=== PATIENT | male | born 1960 | race Caucasian/White ===

== ENCOUNTER → 2016-11-12 | Outpatient (CLI) | payer OTHER ==
[2016-11-12 13:54] LABS: ALT/SGPT 33 U/L (12-78); BLOOD UREA NITROGEN 23 mg/dl (7-18); BUN/CREATININE RATIO 20.5 (10-20); CALCIUM 9.9 mg/dl (8.5-10.1); CARBON DIOXIDE 31 mmol/L (21-32); CHLORIDE 102 mmol/L (98-107); CHOLESTEROL 135 mg/dl (0-200); GLUCOSE 90 mg/dl (70-99); POTASSIUM 3.9 mmol/L (3.5-5.1); SODIUM 138 mmol/L (136-145); TRIGLYCERIDES 97 mg/dl (0-150); VERY LOW DENSITY LIPOPROT CALC 19 mg/dl
[2016-11-12 14:04] LABS: CHOLESTEROL/HDL RATIO 2.7; HDL CHOLESTEROL 50 mg/dl; LDL CHOLESTEROL CALCULATED 66 mg/dl
== END | disposition home or self-care (01) ==
LOC: C.LABMFLN 06:36
PROVIDERS: ATTEND Family Medicine
DX: E78.00 Pure hypercholesterolemia, unspecified (principal); I10 Essential (primary) hypertension; J45.909 Unspecified asthma, uncomplicated; E03.9 Hypothyroidism, unspecified; Z12.5 Encounter for screening for malignant neoplasm of prostate

== ENCOUNTER 2025-02-10 09:11 | Inpatient (IN) ==
--- NOTE | 2025-02-10 09:25 | Emergency Department Note ---
Impression & Plan Dizziness, Syncope, Urinary retention, Seizure-like activity ED Provider Note NAME: TERENCE COYNE AGE: 64 SEX: M : 1960 ARRIVES VIA: Ambulance INFORMANT: Patient, ED PROVIDER(S): Shane Wilkinson MD CHIEF COMPLAINT: Seizure-like activity MEDICAL DECISION MAKING: Patient presents with above. Nonfocal neurologic exam. IV was established and blood work was obtained along with CT head. Patient was ordered 500 of IV fluids. Patient did have a post void trial performed as the patient was to go to the urologist today. Blood work shows a white count of 13. Patient denies any infectious symptoms. He has had a bit of cough. Has been dry nonproductive. Non-smoker. Chest x- ray does not show evidence of obvious pneumonia. Hemoglobin 12.6 with a normal platelet count kidney function with a creat 1.4. This is around the patient's baseline. Magnesium of 1.6 ordered 1 g for replacement. LFTs unremarkable. CT head does not show evidence of obvious ICH. Did speak the on-call neurologist recommended MRI brain EEG. If concern for seizure loaded with Keppra 1 g and 500 twice daily thereafter p.o. I did speak the on-call hospitalist service Dr. Gastelum. She was thinking that maybe the patient was suffering from a syncopal event. The patient recently started some Flomax and reported some lightheadedness prior to the episode. Orthostatics were positive. MRI kept but deferring EEG at this time. Patient comfortable plan of care and the patient was admitted to the medicine service. Discussion w/ other healthcare providers: None Prior /Outside records reviewed: None Differential diagnosis: Epilepsy, infection, hypoglycemia, electrolyte abnormalities, cardiac sources, intracerebral event, trauma, toxicologic, neurologic, syncope, as well as other pathologies. Diagnostics, as interpreted by me: ECG: Normal sinus rhythm, rate of 73, normal intervals, left axis deviation no obvious STEMI. Cardiac monitoring: An order was placed for continuous cardiac monitoring. The monitor shows a rate of 65 with sinus rhythm. Patient was placed on pulse oximetry Medical decision rules: none Imaging studies: I informally interpreted the patient's chest x-ray does not show evidence of obvious pneumonia with formal report to follow. HPI: Patient presents due to concern for seizure-like activity which occurred for several minutes on a van for transportation to a urology appointment. The patient reportedly had a heart attack back in December and fortunately has had persistent urinary retention. The patient was scheduled to see Dr. Marie today. No reported tongue biting. He was unresponsive. BSG prior to arrival was 149. Patient states that he did have some vomiting but no longer feels nauseated. He denies any chest pain or shortness of breath. He reports that he has been taking his medications. He denies any drug use or caffeine or stimulants. No increase in stress or lack of sleep. He reports that he does have a history of seizures but has not had them in "decades." Patient denies any recent prolonged car or plane travel. No travel out of state or country. States that his sleep and appetite have been good. He does live by himself and is from [facility]. He denies any head neck chest back or abdominal pain. PAST MEDICAL HISTORY: See Below PAST SURGICAL HISTORY: See Below SOCIAL HISTORY: See Below HOME MEDICATIONS: See Below ALLERGIES: See Below VITALS: See Below PHYSICAL EXAMINATION: GENERAL: NAD, non-toxic. Wearing glasses. EYE EXAM: Normal conjunctiva. PERRL, no anisocoria and EOM's grossly intact w/o pain. OROPHARYNX: Moist mucus membranes, grossly normal dentition. NECK: Trachea midline, no stridor. Supple, no nuchal rigidity, no adenopathy, non-tender. No signs of meningismus. FROM of the neck with good chin to chest and neck extension. LUNGS: Clear to auscultation. Normal chest wall mechanics. HEART: NSR, no MRG. ABDOMEN: Abdomen soft, non-tender, no masses, no rebound or guarding. SKIN: No rashes and no bruising. UPPER EXTREMITIES: Upper extremities are grossly normal. LOWER EXTREMITIES: Grossly normal, no edema. NEURO EXAM: Awake and alert, follows commands, no obvious facial asymmetry, normal speech, moves all 4 extremities. Past Med/Surg History Problem List (Updated 02/10/25 @ 16:37 by Shane Wilkinson MD) Syncope (Acute) Dizziness (Acute) Syncope Seizure-like activity (Acute) Left renal mass Recently diagnosed- reason for upcoming procedure Anticoagulation management encounter Preoperative evaluation of a medical condition to rule out surgical contraindications (TAR required) Encounter for pre-operative examination Urinary retention (Acute) Orthostatic hypotension Pre-operative cardiovascular examination, recent myocardial infarction Allergic rhinitis (Acute) Esophageal reflux disease (Acute) Sciatica (Acute) Medical History HTN (hypertension) hx of HTN; med changes made recently 2/ new dx of afib and orthostatic hypotension (post 12/2024 hospital d/c pt was on fluid restriction for hyponatremia) History of congenital heart defect pt states coarctation of aorta repair age 6; denies issues since that time; does not follow with Cardio routinely "No doppler findings of significant proximal descending aorta coarctation on limited screening images" per 12/27/24 ECHO Orthostatic hypotension Velasco catheter in place History of epilepsy pt states he was taken off of medication in and has only had 1 sz since then () NSTEMI (non-ST elevated myocardial infarction) 12/24/24- during admission for sepsis (per records - felt likely due to stress from sepsis/demand ischemia); Preop appt with [facility] 02/08/25 [facility] (acute kidney injury) History of 12/2024 (creatinine was up to 10) - has since improved History of recent hospitalization Admitted 12/24/24-01/03/25- with sepsis, urinary retention, hyponatremia, PNA, NSTEMI 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; Discovered 01/24/25- started on Eliquis Paroxysmal atrial fibrillation Developed during 12/2024 [facility] admission for sepsis - cardiology started amiodarone but pt is not currently taking as of 01/31/25 PAT phone interview Hyponatremia During 12/24/24 [facility] admission (Na 110) (felt due to hypovolemia) Has since improved; pt states fluid restriction was lifted Pneumonia 12/2024- during [facility] admission- treated- resolved on most recent CXR Chronic GERD Asthma Hypercholesterolemia Benign essential hypertension Hypothyroidism Obstructive sleep apnea does not use device Surgical History History of colonoscopy H/O aortic coarctation repair age 6; pt states no issues since that time; not following with Cardio Family History Father Diabetes Hypertension Dyslipidemia Alzheimer disease Stroke Myocardial infarction Mother Diabetes Stroke Grandmother (Maternal) Diabetes Grandfather (Maternal) Lung cancer Aunt Breast cancer Denies family history of Ovarian cancer Prostate cancer COPD (chronic obstructive pulmonary disease) Colorectal cancer Asthma Social History Smoking Status: Former smoker Tobacco Type: Cigarettes Age Started Using Tobacco: 17; Age Quit Using Tobacco: 19; packs per day: 0.25; Second Hand Exposure: No; Do You Dip or Chew Tobacco: No; Hx Alcohol Use: No Hx Substance Use: No Preferred Language: Latvian Communication Ability: Effective Visual Impairment: Limited Hearing Ability: Use of Hearing Aid Expense Analyst Required: No Beliefs That Will Affect Care: None marital status: Single Current Living Situation: Alone current occupational status: employed 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 How many Children do You have: 0 Feels Safe at Home: Yes Safety Concerns: Feels Safe At This Time Childhood Exposure to Second-Hand Smoke: Yes (cigar) Diet: regular caffeine: Yes during the past year weight has: remained stable Dental Care, Regularly: No Physical Activity Frequency: Does not Exercise Seatbelt Use: always Sunscreen Use: No Gender Identity: Male Assistive Devices: Cane, Denture - Upper and Hearing Aid - Bilateral Allergies Allergies Allergy/AdvReac Type Severity Reaction Status Date / Time chicken derived Allergy Unknown Vomiting Verified 02/10/25 16:23 turkey Allergy Unknown Vomiting Verified 02/10/25 16:23 Penicillins Allergy Verified 02/08/25 08:54 wheat Allergy Hives Verified 02/08/25 08:54 red (food color) AdvReac Unknown Unknown Verified 02/10/25 16:23 Home Meds Home Medications Medication Instructions Recorded Confirmed acetaminophen 650 mg 650 mg PO .COMPLEX 11/15/20 02/10/25 tablet,extended release (Arthritis Pain Relief (acetaminophen) ER) amlodipine 10 mg tablet 0 mg PO DAILY 01/17/25 02/10/25 epinephrine 0.3 mg/0.3 mL 0.3 mg IM PRN PRN Anaphylaxis 01/17/25 02/10/25 injection, auto-injector Tudca 1 tab PO QAM 01/31/25 02/10/25 atenolol 25 mg tablet 25 mg PO HS 01/31/25 02/10/25 atorvastatin 20 mg tablet 20 mg PO HS 01/31/25 02/10/25 cetirizine 10 mg tablet 10 mg PO QAM 01/31/25 02/10/25 levothyroxine 125 mcg tablet 0 mcg PO QAM 01/31/25 02/10/25 levothyroxine 125 mcg tablet 0 mcg PO QAM 01/31/25 02/10/25 lisinopril 20 mg tablet 20 mg PO QPM 01/31/25 02/10/25 tamsulosin 0.4 mg capsule 0.4 mg PO HS 01/31/25 02/10/25 albuterol sulfate 90 mcg/actuation 2 puff inhalation Q4H PRN 02/10/25 02/10/25 aerosol inhaler shortness of breath or wheezing clotrimazole 1 % topical cream 0 applic topical BID 02/10/25 02/10/25 famotidine 40 mg tablet 0 mg PO HS 02/10/25 02/10/25 fluticasone furoate 100 0 inh inhalation DAILY 02/10/25 02/10/25 mcg/actuation blister powder for inhalation (Arnuity Ellipta) fluticasone propionate 50 2 spray intranasal HS 02/10/25 02/10/25 mcg/actuation nasal spray,suspension ketoconazole 2 % shampoo 0 applic topical DAILY 02/10/25 02/10/25 Previous Rx's Medication Instructions Recorded ketoconazole 2 % topical cream 1 applic topical BID #30 grams 10/05/24 nitroglycerin 0.4 mg sublingual 0.4 mg sublingual Q5M PRN chest 01/18/25 tablet pain #25 tabs apixaban 5 mg tablet (Eliquis) 5 mg PO BID #60 tabs 01/24/25 hydrochlorothiazide 25 mg tablet 25 mg PO QAM #90 tabs 02/01/25 metoprolol succinate 50 mg 50 mg PO HS #90 tabs 02/01/25 tablet,extended release 24 hr Results & Data (ED) Vital Signs Vital Signs - 24 hr 02/10/25 09:10 02/10/25 09:10 02/10/25 09:43 Temperature 36.4 C L Temperature Source Oral Pulse Rate - Lying Pulse Rate - Sitting Pulse Rate - Standing Pulse Rate 71 Pulse Rate [Right Finger] 74 Respiratory Rate 16 Respiratory Effort / Characteristics Non-Labored Spontaneous Respiratory Depth Normal Respiratory Pattern Regular Blood Pressure - Lying Blood Pressure - Sitting Blood Pressure- Standing Blood Pressure [Right Arm] 139/84 Blood Pressure Mean [Right Arm] 102 Pulse Oximetry 99 Oxygen Delivery Method Room Air Sepsis Recent Fever Within 48 Hours No Sepsis New/Unexplained Change in Mental Status No Sepsis Action Taken by Nursing No Action Required 02/10/25 10:30 02/10/25 11:26 Temperature Temperature Source Pulse Rate - Lying 83 Pulse Rate - Sitting 83 Pulse Rate - Standing 92 H Pulse Rate Pulse Rate [Right Finger] 81 Respiratory Rate 16 Respiratory Effort / Characteristics Respiratory Depth Respiratory Pattern Blood Pressure - Lying 143/85 H Blood Pressure - Sitting 144/78 H Blood Pressure- Standing 115/94 Blood Pressure [Right Arm] 138/73 Blood Pressure Mean [Right Arm] 94 Pulse Oximetry 93 Oxygen Delivery Method Room Air Sepsis Recent Fever Within 48 Hours Sepsis New/Unexplained Change in Mental Status Sepsis Action Taken by Correction Medications Current Medication List: was personally reviewed by me Laboratory Data Attestation: I reviewed the patient's lab results. 02/10/25 09:19 02/10/25 09:19 Lab Results 02/10/25 02/10/25 Range/Units 09:19 09:37 WBC 13.29 H (4.8-10.8) K/ul RBC 4.42 L (4.70-6.10) M/uL Hgb 12.6 L (14.0-18.0) g/dL Hct 37.4 L (42.0-52.0) % MCV 84.6 (80.0-100.0) fL MCH 28.5 (25.0-34.0) pg MCHC 33.7 (32.0-36.0) g/dL RDW Std Deviation 42.6 (36.4-46.3) fL RDW Coeff of Kendrick 13.7 (11.5-14.5) % Plt Count 350 (130-400) K/uL MPV 8.4 L (9.4-12.4) fL Immature Gran % (Auto) 1.0 % Neut % (Auto) 77.2 % Lymph % (Auto) 11.8 % Pepin % (Auto) 7.1 % Eos % (Auto) 2.3 % Baso % (Auto) 0.6 % Neut # (Auto) 10.26 H (1.40-6.50) K/uL Lymph # (Auto) 1.57 (1.20-3.40) K/uL Pepin # (Auto) 0.95 H (0.11-0.59) K/uL Eos # (Auto) 0.30 (0.00-0.50) K/uL Baso # (Auto) 0.08 (0.00-0.20) K/uL Immature Gran # (Auto) 0.13 (0.01-0.20) K/uL Sodium 137 (136-145) mmol/L Potassium 3.9 (3.5-5.1) mmol/L Chloride 101 (98-107) mmol/L Carbon Dioxide 27 (21-32) mmol/L Anion Gap 9 (3-11) BUN 25 H (6-23) mg/dl Creatinine 1.42 H (0.6-1.4) mg/dl Est Cr Clr Drug Dosing 62.6 ml/min eGFR 55.52 BUN/Creatinine Ratio 17.6 (10-20) Glucose 160 H (70-99(Fasting)) mg/dl POC Glucose 134 H (70-99) mg/dl Calcium 9.8 (8.6-10.3) mg/dl Magnesium 1.6 L (1.7-2.4) mg/dl Total Bilirubin 0.7 (0.2-1.0) mg/dl AST 16 (13-39) U/L ALT 14 (7-52) U/L Alkaline Phosphatase 79 (34-104) U/L Troponin I High Sens 4.6 (0-20) pg/ml Total Protein 7.5 (6.0-8.3) gm/dl Albumin 4.0 (3.4-5.0) gm/dl Globulin 3.5 (2.5-4.0) gm/dl Albumin/Globulin Ratio 1.1 (0.9-2) Prolactin 21.51 ng/ml Administered Medications Discontinued Medications Gadobutrol (Gadobutrol 65ml Vial) 10 ml IV ONCE ONE Stop: 02/10/25 12:48 Last Admin: 02/10/25 12:48 Dose: 10 ml Documented By: SEE Sodium Chloride (Nss) 500 mls @ 999 mls/hr IV .Q31M ONE Stop: 02/10/25 09:55 Last Infusion: 02/10/25 11:16 Dose: Infused Documented By: Admin: 02/10/25 09:37 Dose: 999 mls/hr Documented By: SG Sodium Chloride (Nss) 500 mls @ 999 mls/hr IV .Q31M ONE Stop: 02/10/25 11:18 Last Infusion: 02/10/25 11:30 Dose: Infused Documented By: Admin: 02/10/25 10:58 Dose: 999 mls/hr Documented By: CARMITA Magnesium Sulfate/Dextrose (Magnesium Sulfate / D5w) 1 gm in 100 mls @ 100 mls/hr IV NOW STA Stop: 02/10/25 11:47 Last Infusion: 02/10/25 12:16 Dose: Infused Documented By: Admin: 02/10/25 10:59 Dose: 100 mls/hr Documented By: CARMITA Ondansetron HCl (Ondansetron Inj 2 Mg/Ml 2 Ml Vial) 4 mg IV NOW STA Stop: 02/10/25 09:35 Last Admin: 02/10/25 09:37 Dose: 4 mg Documented By: [facility] Imaging Data Radiologist's Impression: Head CT 02/10/25 09:22 CT SCAN OF THE BRAIN WITHOUT IV CONTRAST CLINICAL HISTORY: Seizure. COMPARISON STUDY: None TECHNIQUE: Unenhanced axial CT scan of the brain was performed from the vertex to the skull base. A dose lowering technique was utilized adhering to the principles of ALARA. CT DOSE: 547.75 mGy.cm FINDINGS: No intra or extra-axial mass lesions are visualized. There is no CT evidence of acute cortical infarction. There is no evidence of midline shift. There is no evidence of acute hemorrhage. There is no evidence of hydrocephalus. There is no evidence of acute sinusitis. No calvarial lesions are visualized. IMPRESSION: No acute intracranial findings. ACT 112: Negative or not required by law. Electronically signed by: Levi Soliman M.D. 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 There is borderline elevation right hemidiaphragm. There is no failure. There is no focal pulmonary consolidation. There are no pleural effusions. There is no pneumothorax. Degenerative changes are present within the dorsal spine. IMPRESSION: No acute cardiopulmonary findings. ACT 112: Negative or not required by law. Electronically signed by: Levi Soliman M.D. 02/10/2025 10:16 AM Brain MRI 02/10/25 10:52 MRI OF THE BRAIN WITHOUT AND WITH IV CONTRAST SEIZURE PROTOCOL CLINICAL HISTORY: seizure COMPARISON STUDY: Noncontrast head CT dated 02/10/2025 TECHNIQUE: Utilizing a 1.5 Eneida magnet and dedicated coil, multiplanar, multiecho imaging of the brain was performed pre and postcontrast administration. IV administration of [address] contra[address] was uneventful. Thin cut coronal T2 imaging was performed according to seizure protocol. FINDINGS: There are anterior or extra-axial mass lesions are visualized. No orbital lesions are visualized. Ventricular system is normal size and configuration for age. Gradient echo images reveal no hemorrhagic foci. Axial diffusion-weighted images reveal no evidence of acute or subacute infarction. FLAIR images reveal no significant intracranial signal abnormalities. Thin section T2-weighted images to the temporal lobes reveal symmetric hippocampal formations. Postcontrast images reveal no pathologically enhancing lesions. IMPRESSION: 1. No acute intracranial findings 2. No evidence of intracranial mass 3. No evidence of acute or subacute infarction ACT 112: Negative or not required by law. Electronically signed by: Levi Soliman M.D. 02/10/2025 1:05 PM Discharge Plan Visit Data Chief Complaint: Seizure Stated Complaint: Seizure ED Provider: Shane Wilkinson Discharge Problem: Dizziness, Syncope, Urinary retention, Seizure-like activity Patient Disposition: Admitted As Inpatient Condition: Good Discharge Instructions Interventions: ED Discharge Assessment Last Done: 02/10/25 14:00 Discharge Problem: Syncope Qualifiers: Syncope type: unspecified Qualified Code(s): R55 - Syncope and collapse
[2025-02-10 09:34] LABS: Hematocrit (blood only) 37.4 % (42.0-52.0); Hemoglobin 12.6 g/dL (14.0-18.0); Immature Granulocytes # (auto) 0.13 K/uL (0.01-0.20); Immature Granulocytes % (auto) 1.0 %; Mean Corpuscular Hemoglobin 28.5 pg (25.0-34.0); Mean Corpuscular Volume 84.6 fL (80.0-100.0); Platelet Count 350 K/uL (130-400); RDW Standard Deviation 42.6 fL (36.4-46.3); Red Blood Count 4.42 M/uL (4.70-6.10); White Blood Count 13.29 K/ul (4.8-10.8)
[2025-02-10] MEDS: ONDANSETRON INJ 2 MG/ML 2 ML VIAL IV STA (09:37)
[2025-02-10] MEDS: SODIUM CHLORIDE 0.9% 500 ML IV ONE ×2 (09:37→10:58)
[2025-02-10 09:51] LABS: Alanine Aminotransferase 14.0 U/L (7-52); Albumin Globulin Ratio 1.1 (0.9-2); Albumin Level 4.0 gm/dl (3.4-5.0); Alkaline Phosphatase 79.0 U/L (34-104); Anion Gap 9.0 (3-11); Bilirubin,Total 0.7 mg/dl (0.2-1.0); Blood Urea Nitrogen 25.0 mg/dl (6-23); Calcium 9.8 mg/dl (8.6-10.3); Carbon Dioxide 27.0 mmol/L (21-32); Chloride 101.0 mmol/L (98-107); Creatinine Clr Calc Pharmacy 62.6 ml/min; Globulin 3.5 gm/dl (2.5-4.0); Glucose 160.0 mg/dl (70-99(Fasting)); Magnesium 1.6 mg/dl (1.7-2.4); Potassium 3.9 mmol/L (3.5-5.1); Sodium 137.0 mmol/L (136-145); Total Protein 7.5 gm/dl (6.0-8.3)
--- NOTE | 2025-02-10 10:16 | CT Scan Report ---
CT SCAN OF THE BRAIN WITHOUT IV CONTRAST CLINICAL HISTORY: Seizure. COMPARISON STUDY: None TECHNIQUE: Unenhanced axial CT scan of the brain was performed from the vertex to the skull base. A dose lowering technique was utilized adhering to the principles of ALARA. CT DOSE: 547.75 mGy.cm FINDINGS: No intra or extra-axial mass lesions are visualized. There is no CT evidence of acute cortical infarc tion. There is no evidence of midline shift. There is no evidence of acute hemorrhage. There is no ev idence of hydrocephalus. There is no evidence of acute sinusitis. No calvarial lesions are visualized. IMPRESSION: No acute intracranial findings. ACT 112: Negative or not required by law. Electronically signed by: Levi Soliman M.D. 02/10/2025 10:15 AM
--- NOTE | 2025-02-10 10:17 | XRay Report ---
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 There is borderline elevation right hemidiaphragm. There is no failure. There is no focal pulmonary consolidation. There are no pleural effusions. There is no pneu mothorax. Degenerative changes are present within the dorsal spine. IMPRESSION: No acute cardiopulmonary findings. ACT 112: Negative or not required by law. Electronically signed by: Levi Soliman M.D. 02/10/2025 10:16 AM
[2025-02-10] MEDS: MAGNESIUM SULFATE / D5W 1 GM/100 ML BAG IV STA (10:59)
--- NOTE | 2025-02-10 11:28 | History & Physical Report ---
Date of Service February 10, 2025 Assessment & Plan (1) Seizure-like activity: (2) Syncope: (3) Urinary retention: (4) Paroxysmal atrial fibrillation: Plan This patient is a 64-year-old male with history of paroxysmal atrial fibrillation on Eliquis, right tibial chronic DVT, PE, remote history of seizure disorder, left renal mass, urinary retention with enlarged prostate with current Velasco catheter in place, orthostatic hypotension, patulous esophagus/GERD, hypothyroidism, HTN, asthma, and recent admission at [facility] for Staphylococcus bacteremia and rapid atrial fibrillation with myocardial demand ischemia. He will be admitted for syncopal episode likely related to orthostasis. #Syncope/seizure like activity/orthostasis-he was recently started on tamsulosin and his positive orthostatic vital signs in the ED despite getting IV fluids point towards this is the cause. Doubt that he had a seizure. Prolactin ordered and is slightly above the normal limit at 21 but he recalls the entire event both before and after and even during. That points away from seizure. Was given IV fluids in the ED. Hemoglobin only mildly low, No evidence of bleeding. With mild increase in creatinine pointing towards mild hypovolemia. - Admit to PCU for telemetry monitoring - Check troponin - Start LEONEL hose - Continue tamsulosin for now given significant problems with urinary retention requiring Velasco catheter, but if continues with orthostasis, may need to discontinue tamsulosin - Follow BMP, CBC in the a.m. - Advised him to not jump up quickly and to pump his leg muscles before standing #Paroxysmal atrial fibrillation on Eliquis-recently diagnosed with this at an outside hospital. Sounds like had myocardial demand ischemia along with it. He was put on amiodarone and converted to sinus rhythm. He was not placed on Eliquis initially due to hematuria from his renal mass but has since been put on Eliquis for DVT/PE and is tolerating this. He is no longer on amiodarone. - Monitor on telemetry - Continue home atenolol for rate control - Continue Eliquis 5 mg p.o. twice daily - Keep electrolytes replete #hypomagnesemia-magnesium low at 1.6 on arrival - Give 1 g IV magnesium sulfate - Check magnesium level in the morning #History of PE/DVT-with recent right chronic tibial vein DVT and PE noted on CT chest, started on Eliquis 3 weeks ago and tolerating well - Continue Eliquis 5 mg p.o. twice daily #Left renal mass/urinary retention/enlarged prostate/Velasco catheter in place- undergoing workup for nephrectomy with urology. Velasco catheter was removed in the ED for trial of void which she was supposed to have in the office today with urology - Bladder scan and replace Velasco catheter if PVR greater than 500 mL - Continue home tamsulosin with caution given orthostasis - Follow-up with urology for nephrectomy - Follow BMP-creatinine mildly elevated above baseline at 1.4 #HTN/HLD-BPs are controlled - Continue home atenolol, but hold home amlodipine, HCTZ, and lisinopril due to orthostasis -Continue atorvastatin #Hypothyroidism- recent TSH normal at 2.6 in 01/2025 - Continue home levothyroxine #GERD/patulous esophagus on CT-seen to have patulous esophagus on reports from outside hospital recently - Continue home famotidine #Asthma/history of smoking-no acute issues - Continue albuterol as needed DVT prophylaxis-Eliquis Disposition-admit to PCU History of Present Illness Chief Complaint: Possible seizure activity, syncope Primary Care Provider: Zander Fontaine MD This patient is a 64-year-old male with history of paroxysmal atrial fibrillation on Eliquis, right tibial chronic DVT, PE, remote history of seizure disorder, left renal mass, urinary retention with enlarged prostate with current Velasco catheter in place, orthostatic hypotension, patulous esophagus/GERD, hypothyroidism, HTN, asthma, and recent admission at [facility] for Staphylococcus bacteremia and rapid atrial fibrillation with myocardial demand ischemia. 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 The patient reports he felt lightheaded before the event occurred. The lightheadedness went on for about 15 minutes and then he remembers being almost passed out but he could hear what was going on around him but could not respond. He was recently started on tamsulosin by urology about 3 weeks ago. He has an upcoming surgery scheduled for nephrectomy for large left renal mass. The episode was witnessed reportedly as shaking for several minutes. There is no evidence of tongue biting or urinary incontinence as he has a Velasco catheter in place. His blood sugar was 149. His labs were found to have a mild leukocytosis of 13, CT head negative, CXR negative, magnesium mildly low 1.6, creatinine mildly elevated 1.4. He had 2 episodes of nausea and vomiting afterwards. In the ED, he was given IV fluids and IV Zofran, as well as IV magnesium. The ED physician contacted neurology due to suspicion for seizure and they recommended MRI brain. After I saw the patient, orthostatic vital signs were obtained and were positive. No further workup for seizure needed. He will be admitted for syncopal episode. Allergies Allergy/AdvReac Type Severity Reaction Status Date / Time chicken derived Allergy Unknown Vomiting Verified 02/10/25 16:23 turkey Allergy Unknown Vomiting Verified 02/10/25 16:23 Penicillins Allergy Verified 02/08/25 08:54 wheat Allergy Hives Verified 02/08/25 08:54 red (food color) AdvReac Unknown Unknown Verified 02/10/25 16:23 Home Medications Medication Instructions Recorded Confirmed Type acetaminophen 650 mg 650 mg PO .COMPLEX 11/15/20 02/10/25 History tablet,extended release (Arthritis Pain Relief (acetaminophen) ER) ketoconazole 2 % topical cream 1 applic topical BID #30 grams 10/05/24 02/10/25 Rx amlodipine 10 mg tablet 0 mg PO DAILY 01/17/25 02/10/25 History epinephrine 0.3 mg/0.3 mL 0.3 mg IM PRN PRN Anaphylaxis 01/17/25 02/10/25 History injection, auto-injector nitroglycerin 0.4 mg sublingual 0.4 mg sublingual Q5M PRN chest 01/18/25 02/10/25 Rx tablet pain #25 tabs apixaban 5 mg tablet (Eliquis) 5 mg PO BID #60 tabs 01/24/25 02/10/25 Rx Tudca 1 tab PO QAM 01/31/25 02/10/25 History atenolol 25 mg tablet 25 mg PO HS 01/31/25 02/10/25 History atorvastatin 20 mg tablet 20 mg PO HS 01/31/25 02/10/25 History cetirizine 10 mg tablet 10 mg PO QAM 01/31/25 02/10/25 History levothyroxine 125 mcg tablet 0 mcg PO QAM 01/31/25 02/10/25 History levothyroxine 125 mcg tablet 0 mcg PO QAM 01/31/25 02/10/25 History lisinopril 20 mg tablet 20 mg PO QPM 01/31/25 02/10/25 History tamsulosin 0.4 mg capsule 0.4 mg PO HS 01/31/25 02/10/25 History hydrochlorothiazide 25 mg tablet 25 mg PO QAM #90 tabs 02/01/25 02/10/25 Rx metoprolol succinate 50 mg 50 mg PO HS #90 tabs 02/01/25 02/10/25 Rx tablet,extended release 24 hr albuterol sulfate 90 mcg/actuation 2 puff inhalation Q4H PRN 02/10/25 02/10/25 History aerosol inhaler shortness of breath or wheezing clotrimazole 1 % topical cream 0 applic topical BID 02/10/25 02/10/25 History famotidine 40 mg tablet 0 mg PO HS 02/10/25 02/10/25 History fluticasone furoate 100 0 inh inhalation DAILY 02/10/25 02/10/25 History mcg/actuation blister powder for inhalation (Arnuity Ellipta) fluticasone propionate 50 2 spray intranasal HS 02/10/25 02/10/25 History mcg/actuation nasal spray,suspension ketoconazole 2 % shampoo 0 applic topical DAILY 02/10/25 02/10/25 History Past Med/Surg History Problem List (Updated 02/10/25 @ 16:37 by Shane Wilkinson MD) Syncope (Acute) Dizziness (Acute) Syncope Seizure-like activity (Acute) Left renal mass Recently diagnosed- reason for upcoming procedure Anticoagulation management encounter Preoperative evaluation of a medical condition to rule out surgical contraindications (TAR required) Encounter for pre-operative examination Urinary retention (Acute) Orthostatic hypotension Pre-operative cardiovascular examination, recent myocardial infarction Allergic rhinitis (Acute) Esophageal reflux disease (Acute) Sciatica (Acute) Medical History HTN (hypertension) hx of HTN; med changes made recently 2/2 new dx of afib and orthostatic hypotension (post 12/2024 hospital d/c pt was on fluid restriction for hyponatremia) History of congenital heart defect pt states coarctation of aorta repair age 6; denies issues since that time; does not follow with Cardio routinely "No doppler findings of significant proximal descending aorta coarctation on limited screening images" per 12/27/24 ECHO Orthostatic hypotension Velasco catheter in place History of epilepsy pt states he was taken off of medication in 1980s and has only had 1 sz since then () NSTEMI (non-ST elevated myocardial infarction) 12/24/24- during admission for sepsis (per records - felt likely due to stress from sepsis/demand ischemia); Preop appt with [facility] 02/08/25 [facility] (acute kidney injury) History of 12/2024 (creatinine was up to 10) - has since improved History of recent hospitalization Admitted 12/24/24-01/03/25- with sepsis, urinary retention, hyponatremia, PNA, NSTEMI 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; Discovered 01/24/25- started on Eliquis Paroxysmal atrial fibrillation Developed during 12/2024 [facility] [place] admission for sepsis - cardiology started amiodarone but pt is not currently taking as of 01/31/25 PAT phone interview Hyponatremia During 12/24/24 [facility] [place] admission (Na 110) (felt due to hypovolemia) Has since improved; pt states fluid restriction was lifted Pneumonia 12/2024- during [facility] [place] admission- treated- resolved on most recent CXR Chronic GERD Asthma Hypercholesterolemia Benign essential hypertension Hypothyroidism Obstructive sleep apnea does not use device Surgical History History of colonoscopy H/O aortic coarctation repair age 6; pt states no issues since that time; not following with Cardio Family History Father Diabetes Hypertension Dyslipidemia Alzheimer disease Stroke Myocardial infarction Mother Diabetes Stroke Grandmother (Maternal) Diabetes Grandfather (Maternal) Lung cancer Aunt Breast cancer Denies family history of Ovarian cancer Prostate cancer COPD (chronic obstructive pulmonary disease) Colorectal cancer Asthma Social History Smoking Status: Former smoker Tobacco Type: Cigarettes Age Started Using Tobacco: 17; Age Quit Using Tobacco: 19; packs per day: 0.25; Second Hand Exposure: No; Do You Dip or Chew Tobacco: No; Hx Alcohol Use: No Hx Substance Use: No Preferred Language: Georgian Communication Ability: Effective Visual Impairment: Limited Hearing Ability: Use of Hearing Aid Stiff Leg Operator Required: No Beliefs That Will Affect Care: None marital status: Single Current Living Situation: Alone current occupational status: employed 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 How many Children do You have: 0 Feels Safe at Home: Yes Safety Concerns: Feels Safe At This Time Childhood Exposure to Second-Hand Smoke: Yes (cigar) Diet: regular caffeine: Yes during the past year weight has: remained stable Dental Care, Regularly: No Physical Activity Frequency: Does not Exercise Seatbelt Use: always Sunscreen Use: No Gender Identity: Male Assistive Devices: Cane, Denture - Upper and Hearing Aid - Bilateral Review of Systems Review of Systems: All systems reviewed & are unremarkable except as noted in HPI & below Physical Exam Constitutional: WD/WN, vitals as above Respiratory: normal respiratory effort, lungs clear to auscultation Cardiovascular: RRR, no murmur, no edema Gastrointestinal (Abdomen): normal bowel sounds, soft, nontender, no hepatosplenomegaly Musculoskeletal: Extremities: extremities normal to inspection Skin: no rashes, warm and dry Neurologic: PERRL, EOMI, accommodation nl, no face palsy, no dysarthria no focal motor deficits and not confused Speech / Cognition: normal speech Psychiatric: A+Ox3, euthymic affect Results & Data Results & Data Vital Signs (Past 12 Hours) Vital Signs Temp Pulse Pulse Resp BP Pulse Ox O2 Del Method 02/10/25 10:30 81 16 138/73 93 Room Air 02/10/25 09:43 71 02/10/25 09:10 36.4 C L 74 16 139/84 99 Room Air Laboratory Results CBC, CMP, magnesium reviewed Diagnostic Findings Head CT 02/10/25 09:22 CT SCAN OF THE BRAIN WITHOUT IV CONTRAST CLINICAL HISTORY: Seizure. COMPARISON STUDY: None TECHNIQUE: Unenhanced axial CT scan of the brain was performed from the vertex to the skull base. A dose lowering technique was utilized adhering to the principles of ALARA. CT DOSE: 547.75 mGy.cm FINDINGS: No intra or extra-axial mass lesions are visualized. There is no CT evidence of acute cortical infarction. There is no evidence of midline shift. There is no evidence of acute hemorrhage. There is no evidence of hydrocephalus. There is no evidence of acute sinusitis. No calvarial lesions are visualized. IMPRESSION: No acute intracranial findings. ACT 112: Negative or not required by law. Electronically signed by: Levi Soliman M.D. 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 There is borderline elevation right hemidiaphragm. There is no failure. There is no focal pulmonary consolidation. There are no pleural effusions. There is no pneumothorax. Degenerative changes are present within the dorsal spine. IMPRESSION: No acute cardiopulmonary findings. ACT 112: Negative or not required by law. Electronically signed by: Levi Soliman M.D. 02/10/2025 10:16 AM ECG Additional Comments: ECG on 03/03 at 9:16 AM with normal sinus rhythm with borderline QRS widening, LVH by voltage criteria, rate 73, no acute ischemic changes Code Status & VTE Plan Code Status Full code VTE Prophylaxis Plan VTE Prophylaxis will be ordered: Yes PG Care Time/CCT Total # of Minutes Spent Total Time Spent with Patient: Total time spent is greater than 50% in coordination of care (as documented) at patient's floor/unit and/or counseling patient: Coding Level of Care Code 75440 INT INP/OBS CARE 3/75MIN Diagnoses Seizure-like activity R29.818 Syncope R55 Urinary retention R33.9 Paroxysmal atrial fibrillation I48.0
[2025-02-10] MEDS: GADOBUTROL 65ML VIAL IV ONE (12:48)
--- NOTE | 2025-02-10 13:04 | Electrocardiogram Report ---
Test Reason : Blood Pressure : */* mmHG Vent. Rate : 73 BPM Atrial Rate : 73 BPM P-R Int : 170 ms QRS Dur : 118 ms QT Int : 418 ms P-R-T Axes : 35 -29 35 degrees QTcB Int : 460 ms Normal sinus rhythm Left ventricular hypertrophy with QRS widening ( R in aVL ) Abnormal ECG When compared with ECG of 24-Jan-2025 11:10, T wave inversion no longer evident in Inferior leads Confirmed by Master Brady ([id number]) on 02/10/2025 1:03:37 PM Referred By: Confirmed By: Master Brady
--- NOTE | 2025-02-10 13:07 | Magnetic Resonance Report ---
MRI OF THE BRAIN WITHOUT AND WITH IV CONTRAST SEIZURE PROTOCOL CLINICAL HISTORY: seizure COMPARISON STUDY: Noncontrast head CT dated 02/10/2025 TECHNIQUE: Utilizing a 1.5 Eneida magnet and dedicated coil, multiplanar, multiecho imaging of the br ain was performed pre and postcontrast administration. IV administration of [address] contra [address] was uneventful. Thin cut coronal T2 imaging was performed according to seizure protocol. FINDINGS: There are anterior or extra-axial mass lesions are visualized. No orbital lesions are visualized. Ventricular system is normal size and configuration for age. Gradient echo images reveal no hemorrhagic foci. Axial diffusion-weighted images reveal no evidence of acute or subacute infarction. FLAIR images reveal no significant intracranial signal abnormalities. Thin section T2-weighted images to the temporal lobes reveal symmetric hippocampal formations. Postcontrast images reveal no pathologically enhancing lesions. IMPRESSION: 1. No acute intracranial findings 2. No evidence of intracranial mass 3. No evidence of acute or subacute infarction ACT 112: Negative or not required by law. Electronically signed by: Levi Soliman M.D. 02/10/2025 1:05 PM
[2025-02-10] MEDS ORDERED: ALBUTEROL HFA 8 GM INHALER INH PRN (14:22)
[2025-02-10] MEDS: ACETAMINOPHEN 325 MG TAB PO SCH (16:40)
[2025-02-10] MEDS: ATORVASTATIN 20 MG TAB PO SCH (20:55)
[2025-02-10] MEDS: FAMOTIDINE 40 MG TABLET PO SCH (20:55)
[2025-02-10] MEDS: TAMSULOSIN HCL 0.4 MG CAP PO SCH (20:56)
[2025-02-10] MEDS: ATENOLOL 25 MG TABLET PO SCH (20:56)
[2025-02-10] MEDS: APIXABAN 5 MG TABLET PO SCH (20:56)
[2025-02-10] MEDS: FLUTICASONE PROPIONATE NA SPR 16 GM BTL NAE SCH (20:57)
[2025-02-10 22:49] LABS: Appearance Urine Turbid (Clear); Bacteria Urine Automated 4+ (None Seen); Cast Urine Automated 0-2 /lpf (0-2); Epithelial Cell Urine Auto 0-2 /hpf (0-2); Glucose Urine UA Negative (Negative); RBC Urine Automated >20 /hpf (0-2); WBC Urine Automated >50 /hpf (0-5)
[2025-02-10] MEDS ORDERED: cefTRIAXone SODIUM 1,000 MG/50 ML BAG IV SCH (23:15)
[2025-02-10] MEDS: cefTRIAXone SODIUM 2,000 MG/50 ML BAG IV SCH (23:40)
[2025-02-11] MEDS: LEVOTHYROXINE SODIUM 125 MCG TABLET PO SCH (06:03)
[2025-02-11 06:29] LABS: Hematocrit (blood only) 35.9 % (42.0-52.0); Hemoglobin 12.6 g/dL (14.0-18.0); Immature Granulocytes # (auto) 0.05 K/uL (0.01-0.20); Immature Granulocytes % (auto) 0.6 %; Mean Corpuscular Hemoglobin 29.6 pg (25.0-34.0); Mean Corpuscular Volume 84.5 fL (80.0-100.0); Platelet Count 346 K/uL (130-400); RDW Standard Deviation 43.2 fL (36.4-46.3); Red Blood Count 4.25 M/uL (4.70-6.10); White Blood Count 8.87 K/ul (4.8-10.8)
[2025-02-11 06:46] LABS: Anion Gap 8.0 (3-11); Blood Urea Nitrogen 18.0 mg/dl (6-23); Calcium 9.4 mg/dl (8.6-10.3); Carbon Dioxide 28.0 mmol/L (21-32); Chloride 103.0 mmol/L (98-107); Creatinine Clr Calc Pharmacy 72.4 ml/min; Glucose 112.0 mg/dl (70-99(Fasting)); Magnesium 1.7 mg/dl (1.7-2.4); Potassium 4.0 mmol/L (3.5-5.1); Sodium 139.0 mmol/L (136-145)
[2025-02-11] MEDS: CETIRIZINE HCL 10 MG TABLET PO SCH (10:00)
[2025-02-11] MEDS: FLUTICASONE FUROATE 100MCG 14 PUFFS/INHALER INH SCH (10:00)
--- NOTE | 2025-02-11 10:34 | Hospitalist Progress Note ---
Date of Service February 11, 2025 Assessment & Plan (1) Syncope: (2) Urinary retention: (3) Paroxysmal atrial fibrillation: (4) UTI (urinary tract infection): Plan This patient is a 64-year-old male with history of paroxysmal atrial fibrillation on Eliquis, right tibial chronic DVT, PE, remote history of seizure disorder, left renal mass, urinary retention with enlarged prostate with current Velasco catheter in place, orthostatic hypotension, patulous esophagus/GERD, hypothyroidism, HTN, asthma, and recent admission at [facility] for Staphylococcus bacteremia/sepsis, acute kidney injury with creatinine of 10, severe hyponatremia, hyperkalemia, and rapid atrial fibrillation with myocardial demand ischemia. He went to rehab after that and was discharged to home on January 14 with a chronic Velasco catheter. He is now readmitted after having syncope in the medical transportation van on the way to his urology appointment for trial of void. He is admitted for syncopal episode related to orthostasis and dehydration. #Syncope/seizure like activity/orthostasis-he was recently started on tamsulosin and had positive orthostatic vital signs on arrival. He also has been taking HCTZ, lisinopril, metoprolol, and atenolol at home accidentally after they were supposed to have been held since his last hospitalization. Doubt that he had a seizure. Prolactin ordered and is slightly above the normal limit at 21 but he recalls the entire event both before and after and even during. That points away from seizure. Was given IV fluids and his HCTZ/lisinopril/metoprolol/amlodipine were all held. Hemoglobin only mildly low, No evidence of bleeding. With mild increase in creatinine pointing towards mild hypovolemia which is now resolved. He has had no significant events on telemetry. Troponin negative and he is in a sinus rhythm with normal heart rates. Repeat orthostatic vital signs on 02/11 are now normal. -Continue LEONEL hose - Continue tamsulosin for now given significant problems with urinary retention requiring Velasco catheter, but if continues with orthostasis, may need to discontinue tamsulosin - Follow BMP, CBC in the a.m. - Advised him to not jump up quickly and to pump his leg muscles before standing - Permanently discontinue HCTZ, lisinopril, amlodipine, and metoprolol, but will continue his atenolol which she has been on for quite some time #Paroxysmal atrial fibrillation on Eliquis-recently diagnosed with this at an outside hospital. Sounds like had myocardial demand ischemia along with it. He was put on amiodarone and converted to sinus rhythm. He was not placed on El iquis initially due to hematuria from his renal mass but has since been put on Eliquis for DVT/PE and is tolerating this. He is no longer on amiodarone. He continues to be in a sinus rhythm during this hospitalization - Continue to monitor on telemetry for recurrence - Continue home atenolol for rate control-he was accidentally taking dual beta- blockade therapy with metoprolol and atenolol after discharge-metoprolol stopped - Continue Eliquis 5 mg p.o. twice daily for now, but this will need to be held for 48 hours prior to his nephrectomy on 02/17 - Keep electrolytes replete/optimal-give 2 g IV magnesium sulfate to keep mag greater than 2.0 #hypomagnesemia-magnesium low at 1.6 on arrival-replaced and remains low normal at 1.7 - Give 2 g IV magnesium sulfate - Check magnesium level in the morning #History of PE/DVT-with recent right chronic tibial vein DVT and PE noted on CT chest, started on Eliquis 3 weeks prior to admission and tolerating well - Continue Eliquis 5 mg p.o. twice daily - Plan to hold Eliquis 48 hours prior to nephrectomy starting on the a.m. of 02/15 and bridge with therapeutic Lovenox 1 mg/KG SQ every 12 hours through the evening of 02/16 prior to his surgery on 02/17 - Plan to resume Eliquis versus bridging heparin drip or SQ Lovenox as soon as possible after nephrectomy when safe from a surgical standpoint #Left renal mass/urinary retention/enlarged prostate/Velasco catheter in place/UTI -plans in place for nephrectomy with urology on 02/17. Velasco catheter was removed during this admission for trial of void and again failed. Velasco catheter replaced on 02/10. UA abnormal consistent with UTI, however urine culture with mixed organisms. Creatinine mildly elevated above baseline at 1.4 on arrival and now improved to 1.22 after IVF's and stopping diuretics and lisinopril - Continue home tamsulosin with caution given orthostasis - Continue ceftriaxone empirically x 7-day course-could switch to oral antibiotics - Follow BMP - Working on trying to get patient to rehab between now and nephrectomy but if not possible, he can remain in the hospital until his nephrectomy on 02/17 #HTN/HLD-BPs are controlled, and came in with orthostasis which is now improved - Continue home atenolol, but discontinue home amlodipine, HCTZ, metoprolol, and lisinopril due to orthostasis -Continue atorvastatin #Hypothyroidism- recent TSH normal at 2.6 in 01/2025 - Continue home levothyroxine #GERD/patulous esophagus on CT-seen to have patulous esophagus on reports from outside hospital recently - Continue home famotidine #Asthma/history of smoking-no acute issues - Continue albuterol as needed DVT prophylaxis-Eliquis Disposition-continued stay on PCU, but if remains stable without A-fib on telemetry in 1-2 days, could downgrade to medical/surgical unit. PT/OT evaluations ordered-if he can get to rehab on Wednesday 02/14, he can return for nephrectomy on 02/17. Otherwise, he will likely remain in the hospital until his nephrectomy. Admission and Anticipated Discharge Date Admission Date: February 10, 2025 Subjective Patient denies lightheadedness with standing up. No chest pains or shortness of breath. He is fearful of going home and passing out again and he does not think that he can do bridging Lovenox injections on himself at home. He reports his brother lives far away and he has no one to help him. He was unable to void overnight and had suprapubic pain-he had a Velasco catheter placed for over 500 mL of urine. He is now being treated for UTI. We reviewed all of his pill bottles from home and he had multiple medications that he has been taking that he was not supposed to be taking including both metoprolol and atenolol, HCTZ, lisinopril, and he was taking 2 pills of levothyroxine from 2 different bottles at the same dose for a total of 250 mcg daily. I helped him organize his medications and took away the bottles of pills that he should not be taking in the future. I discussed his care with the urology nurse practitioner as well as with case management. Telemetry with normal sinus rhythm with rates in the 60s to 80s Physical Exam Constitutional: WD/WN, vitals as above Respiratory: normal respiratory effort, lungs clear to auscultation Cardiovascular: RRR, no murmur, no edema Gastrointestinal (Abdomen): normal bowel sounds, soft, nontender, no hepatosplenomegaly Musculoskeletal: Extremities: extremities normal to inspection Skin: no rashes, warm and dry Neurologic: no focal motor deficits and not confused Speech / Cognition: normal speech Psychiatric: A+Ox3, euthymic affect Results & Data Results & Data Vital Signs (Past 12 Hours) Vital Signs Temp Pulse Pulse Resp BP Pulse Ox O2 Del Method 02/11/25 07:10 36.5 C 74 16 133/67 96 Room Air 02/11/25 07:00 61 02/11/25 03:11 36.4 C L 67 19 119/69 97 Room Air 02/10/25 23:31 36.8 C 81 19 121/68 97 Room Air 02/10/25 22:45 86 Laboratory Results CBC, BMP, magnesium, UA, and urine culture reviewed PG Care Time/CCT Total # of Minutes Spent Total Time Spent with Patient: Total time spent is greater than 50% in coordination of care (as documented) at patient's floor/unit and/or counseling patient: Coding Level of Care Code 02188 SUB INP/OBS CARE 3/50MIN Diagnoses Syncope R55 Urinary retention R33.9 Paroxysmal atrial fibrillation I48.0 UTI (urinary tract infection) N39.0
[2025-02-11] MEDS: SENNA 8.6 MG TAB PO SCH (10:57)
[2025-02-11] MEDS: MAGNESIUM SULFATE / D5W 1 GM/100 ML BAG IV SCH (17:10)
--- NOTE | 2025-02-12 09:44 | Hospitalist Progress Note ---
Date of Service February 12, 2025 Assessment & Plan (1) Syncope: Plan: -recently started on tamsulosin and had positive orthostatic vital signs on arrival. He also has been taking HCTZ, lisinopril, metoprolol, and atenolol at home accidentally after they were supposed to have been held since his last hospitalization. - Permanently discontinue HCTZ, lisinopril, amlodipine, and metoprolol, but will continue his atenolol (2) Urinary retention: Plan: -plans in place for nephrectomy with urology on 02/17. -Velasco catheter was removed during this admission for trial of void and again failed. -Velasco catheter replaced on 02/10. UA abnormal consistent with UTI, however urine culture with mixed organisms. -Creatinine mildly elevated above baseline at 1.4 on arrival and now improved to 1.22 after IVF's and stopping diuretics and lisinopril - Continue home tamsulosin with caution given orthostasis (3) Paroxysmal atrial fibrillation: Plan: Continue home atenolol for rate control-he was accidentally taking dual beta- blockade therapy with metoprolol and atenolol after discharge-metoprolol stopped - Continue Eliquis 5 mg p.o. twice daily for now, but this will need to be held for 48 hours prior to his nephrectomy on 02/17 (4) UTI (urinary tract infection): Plan: Continue ceftriaxone empirically x 7-day course-could switch to oral antibiotics - Working on trying to get patient to rehab between now and nephrectomy but if not possible, he can remain in the hospital until his nephrectomy on 02/17 Plan This patient is a 64-year-old male with history of paroxysmal atrial fibrillation on Eliquis, right tibial chronic DVT, PE, remote history of seizure disorder, left renal mass, urinary retention with enlarged prostate with current Velasco catheter in place, orthostatic hypotension, patulous esophagus/GERD, hypothyroidism, HTN, asthma, and recent admission at [facility] for Staphylococcus bacteremia/sepsis, acute kidney injury with creatinine of 10, severe hyponatremia, hyperkalemia, and rapid atrial fibrillation with myocardial demand ischemia. He went to rehab after that and was discharged to home on January 14 with a chronic Velasco catheter. He is now readmitted after having syncope in the medical transportation van on the way to his urology appointment for trial of void. He is admitted for syncopal episode related to orthostasis and dehydration. 1 DVT prophylaxis-Eliquis Disposition- PT/OT evaluations ordered-if he can get to rehab on Wednesday 02/14, he can return for nephrectomy on 02/17. Otherwise, he will likely remain in the hospital until his nephrectomy. Admission and Anticipated Discharge Date Admission Date: February 11, 2025 Subjective No events overnight. Pt resting comfortably in bed. Review of Systems Review of Systems: CONST: Negative for fever, body aches and chills. HENT: Negative for neck pain/stiffness, headache, congestion, sore throat, swelling. EYES: Negative for discharge/pain or vision changes. RESP: Negative for cough/hemoptysis and shortness of breath. CV: Negative chest pain, difficulty breathing, palpitations. ABD: Negative pain, nausea, vomiting. : Negative increase frequency, dysuria, blood in urine or stool. MUSC: Negative for muscle aches, edema. SKIN: Negative rash, lesions/sores. NEURO: Negative headache, dizziness, weakness. Physical Exam Physical Exam: GENERAL APPEARANCE NAD, activity normal for age, well developed/ well nourished, no cyanosis, pallor, or diaphoresis. EYES lids/conjunctiva normal. EARS/NOSE/THROAT Mucous membranes moist, nares normal, lips/teeth normal uvula midline without oral pharyngeal erythema, exudate or swelling TMs normal bilaterally. No lymphangitis/lymphedema. HEAD/NECK normocephalic atraumatic, no facial trauma, neck is supple. RESPIRATORY respiratory effort normal, speaks in full sentences, no tripod position, no accessory muscle use. Lungs clear to auscultation without rhonchi, wheezes, rales CARDIAC Regular rate and rhythm, no edema. ABDOMINAL Soft, ND/NT. No evidence of fluid wave. No pulsatile masses on exam, rebound tenderness, Suarez sign or pain over Mcburney's point. MUSCLES/EXTREMITIES No abnormal range of motion, no swelling. SKIN Warm, pink and dry. No rashes, dermatoses, petechiae or lesions. NEUROLOGICAL Speech is clear and appropriate. Normal level of consciousness. Gait and coordination are normal. 5/5 strength in all extremities. PSYCH Normal mood and affect. Judgement/competence is appropriate Results & Data Results & Data Vital Signs (Past 12 Hours) Vital Signs Temp Pulse Resp BP Pulse Ox O2 Del Method 02/12/25 07:32 36.9 C 62 22 129/75 96 Room Air 02/12/25 03:25 36.6 C 62 17 112/74 94 Room Air 02/11/25 23:13 36.4 C L 74 17 127/69 96 Room Air PG Care Time/CCT Total # of Minutes Spent Total Time Spent with Patient: Total time spent is greater than 50% in coordination of care (as documented) at patient's floor/unit and/or counseling patient: Coding Level of Care Code 27929 SUB INP/OBS CARE 2/35MIN Diagnoses Syncope R55 Urinary retention R33.9 Paroxysmal atrial fibrillation I48.0 UTI (urinary tract infection) N39.0
--- NOTE | 2025-02-13 09:59 | Hospitalist Progress Note ---
Date of Service February 13, 2025 Assessment & Plan (1) Syncope: Plan: -recently started on tamsulosin and had positive orthostatic vital signs on arrival. He also has been taking HCTZ, lisinopril, metoprolol, and atenolol at home accidentally after they were supposed to have been held since his last hospitalization. - Permanently discontinue HCTZ, lisinopril, amlodipine, and metoprolol, but will continue his atenolol -no further issues, awaiting placement (2) Urinary retention: Plan: -plans in place for nephrectomy with urology on 02/17. -Velasco catheter was removed during this admission for trial of void and again failed. -Velasco catheter replaced on 02/10. UA abnormal consistent with UTI, however urine culture with mixed organisms. -Creatinine mildly elevated above baseline at 1.4 on arrival and now improved to 1.22 after IVF's and stopping diuretics and lisinopril - Continue home tamsulosin with caution given orthostasis (3) Paroxysmal atrial fibrillation: Plan: Continue home atenolol for rate control-he was accidentally taking dual beta- blockade therapy with metoprolol and atenolol after discharge-metoprolol stopped - Continue Eliquis 5 mg p.o. twice daily for now, but this will need to be held for 48 hours prior to his nephrectomy on 02/17 (4) UTI (urinary tract infection): Plan: Continue ceftriaxone empirically x 7-day course-could switch to oral antibiotics - Working on trying to get patient to rehab between now and nephrectomy but if not possible, he can remain in the hospital until his nephrectomy on 02/17 Plan This patient is a 64-year-old male with history of paroxysmal atrial fibrillation on Eliquis, right tibial chronic DVT, PE, remote history of seizure disorder, left renal mass, urinary retention with enlarged prostate with current Velasco catheter in place, orthostatic hypotension, patulous esophagus/GERD, hypothyroidism, HTN, asthma, and recent admission at [facility] for Staphylococcus bacteremia/sepsis, acute kidney injury with creatinine of 10, severe hyponatremia, hyperkalemia, and rapid atrial fibrillation with myocardial demand ischemia. He went to rehab after that and was discharged to home on January 14 with a chronic Velasco catheter. He is now readmitted after having syncope in the medical transportation van on the way to his urology appointment for trial of void. He is admitted for syncopal episode related to orthostasis and dehydration. 1 DVT prophylaxis-Eliquis Disposition- PT/OT evaluations ordered-if he can get to rehab on Wednesday 02/14, he can return for nephrectomy on 02/17. Otherwise, he will likely remain in the hospital until his nephrectomy. Admission and Anticipated Discharge Date Admission Date: February 11, 2025 Subjective No events overnight. Pt resting comfortably in bed. Review of Systems Review of Systems: CONST: Negative for fever, body aches and chills. HENT: Negative for neck pain/stiffness, headache, congestion, sore throat, swelling. EYES: Negative for discharge/pain or vision changes. RESP: Negative for cough/hemoptysis and shortness of breath. CV: Negative chest pain, difficulty breathing, palpitations. ABD: Negative pain, nausea, vomiting. : Negative increase frequency, dysuria, blood in urine or stool. MUSC: Negative for muscle aches, edema. SKIN: Negative rash, lesions/sores. NEURO: Negative headache, dizziness, weakness. Physical Exam Physical Exam: GENERAL APPEARANCE NAD, activity normal for age, well developed/ well nourished, no cyanosis, pallor, or diaphoresis. EYES lids/conjunctiva normal. EARS/NOSE/THROAT Mucous membranes moist, nares normal, lips/teeth normal uvula midline without oral pharyngeal erythema, exudate or swelling TMs normal bilaterally. No lymphangitis/lymphedema. HEAD/NECK normocephalic atraumatic, no facial trauma, neck is supple. RESPIRATORY respiratory effort normal, speaks in full sentences, no tripod position, no accessory muscle use. Lungs clear to auscultation without rhonchi, wheezes, rales CARDIAC Regular rate and rhythm, no edema. ABDOMINAL Soft, ND/NT. No evidence of fluid wave. No pulsatile masses on exam, rebound tenderness, Suarez sign or pain over Mcburney's point. MUSCLES/EXTREMITIES No abnormal range of motion, no swelling. SKIN Warm, pink and dry. No rashes, dermatoses, petechiae or lesions. NEUROLOGICAL Speech is clear and appropriate. Normal level of consciousness. Gait and coordination are normal. 5/5 strength in all extremities. PSYCH Normal mood and affect. Judgement/competence is appropriate Results & Data Results & Data Vital Signs (Past 12 Hours) Vital Signs Temp Pulse Pulse Resp BP Pulse Ox O2 Del Method 02/13/25 07:29 36.6 C 63 20 124/70 97 Room Air 02/13/25 07:00 55 L 02/13/25 03:51 36.7 C 62 16 107/84 93 Room Air 02/12/25 23:51 73 02/12/25 23:20 36.5 C 65 16 115/67 98 Room Air PG Care Time/CCT Total # of Minutes Spent Total Time Spent with Patient: Total time spent is greater than 50% in coordination of care (as documented) at patient's floor/unit and/or counseling patient: Coding Level of Care Code 83462 SUB INP/OBS CARE 2/35MIN Diagnoses Syncope R55 Urinary retention R33.9 Paroxysmal atrial fibrillation I48.0 UTI (urinary tract infection) N39.0
--- NOTE | 2025-02-14 08:01 | Hospitalist Progress Note ---
Date of Service February 14, 2025 Assessment & Plan (1) Syncope: Plan: -recently started on tamsulosin and had positive orthostatic vital signs on arrival. He also has been taking HCTZ, lisinopril, metoprolol, and atenolol at home accidentally after they were supposed to have been held since his last hospitalization. - Permanently discontinue HCTZ, lisinopril, amlodipine, and metoprolol, but will continue his atenolol -no further issues, awaiting upcoming nephrectomy (2) Urinary retention: Plan: -plans in place for nephrectomy due to renal mass that is suspicious for malignancy, with urology on 02/17. -Velasco catheter was removed during this admission for trial of void and again failed. -Velasco catheter replaced on 02/10. UA abnormal consistent with UTI, however urine culture with mixed organisms. -Creatinine mildly elevated above baseline at 1.4 on arrival and now improved to 1.22 after IVF's and stopping diuretics and lisinopril - Continue home tamsulosin with caution given orthostasis (3) Paroxysmal atrial fibrillation: Plan: Continue home atenolol for rate control-he was accidentally taking dual beta- blockade therapy with metoprolol and atenolol after discharge-metoprolol stopped - Continue Eliquis 5 mg p.o. twice daily oin hold for upcoming surgery, 02/17 (4) UTI (urinary tract infection): Plan: Continue ceftriaxone empirically continue thru surgery - Working on remain in the hospital until his nephrectomy on 02/17 Plan This patient is a 64-year-old male with history of paroxysmal atrial fibrillation on Eliquis, right tibial chronic DVT, PE, remote history of seizure disorder, left renal mass, urinary retention with enlarged prostate with current Velasco catheter in place, orthostatic hypotension, patulous esophagus/GERD, hypothyroidism, HTN, asthma, and recent admission at [facility] for Staphylococcus bacteremia/sepsis, acute kidney injury with creatinine of 10, severe hyponatremia, hyperkalemia, and rapid atrial fibrillation with myocardial demand ischemia. He went to rehab after that and was discharged to home on January 14 with a chronic Velasco catheter. He is now readmitted after having syncope in the medical transportation van on the way to his urology appointment for trial of void. Admission and Anticipated Discharge Date Admission Date: February 11, 2025 Subjective pt continues to do well, ambulating in [address], for upcoming surgery 02/17 for renal mass Physical Exam Physical Exam: pleasant, no distress cardiac is regular lungs are clear Results & Data Results & Data Vital Signs (Past 12 Hours) Vital Signs Temp Pulse Pulse Resp BP Pulse Ox O2 Del Method 02/14/25 02:42 97.9 F 62 18 119/69 96 Room Air 02/13/25 23:35 72 02/13/25 22:34 97.7 F 69 18 121/75 97 Room Air Diagnostic Findings all meds and orders reviewed for transition to med surg PG Care Time/CCT Total # of Minutes Spent Total Time Spent with Patient: Total time spent is greater than 50% in coordination of care (as documented) at patient's floor/unit and/or counseling patient: Coding Level of Care Code 06013 SUB INP/OBS CARE 3/50MIN Diagnoses Syncope R55 Urinary retention R33.9 Paroxysmal atrial fibrillation I48.0 UTI (urinary tract infection) N39.0
--- NOTE | 2025-02-15 10:38 | Urology Consultation ---
<Statement entered by Patricio Marie MD - 02/16/25 15:09> 64-year-old male with multiple comorbidities and large renal mass concerning for renal cell carcinoma. Current plan is for left robot-assisted radical nephrectomy on 02/17/2025. Will make him n.p.o. at midnight on 02/17. Case was discussed with hospitalist team last week with plan to hold Eliquis, bridge on Lovenox. Velasco catheter will remain in place and he is being treated with ceftriaxone through surgery. Date of Consultation February 15, 2025 Assessment & Plan (1) Left renal mass: Plan Will plan to proceed with scheduled robot-assisted laparoscopic left radical nephrectomy with Dr. Marie on 02/17/25 given there are no acute changes. Maintain Velasco catheter. Continue antibiotic coverage with Ceftriaxone. Eliquis placed on hold 02/14, can bridge as felt necessary per primary team. Urology will follow, please contact us with any questions or concerns. History of Present Illness Attending Physician: Juan Carlos Mckeon MD History of Present Illness 64-year-old male who was admitted on 02/10/25 for syncopal episode related to orthostasis and dehydration. Per notes, patient had recently started tamsulosin and was also taking HCTZ, lisinopril, metoprolol, and atenolol at home accidentally after they were supposed to have been held since his last hospitalization. He has had no further syncopal episodes. He also has a known mass of his left kidney that is suspicious for underlying malignancy. He is scheduled for robot-assisted laparoscopic left radical nephrectomy with Dr. Marie on 02/17/25. He was awaiting rehab placement, but will now plan to remain in the hospital until his scheduled nephrectomy on 02/17. Patient seen at bedside today. No acute distress. He is afebrile with stable vitals. Denies any pain. Denies f/c/n/v. Allergies Allergy/AdvReac Type Severity Reaction Status Date / Time chicken derived Allergy Unknown Vomiting Verified 02/10/25 16:23 turkey Allergy Unknown Vomiting Verified 02/10/25 16:23 Penicillins Allergy Verified 02/08/25 08:54 wheat Allergy Hives Verified 02/08/25 08:54 red (food color) AdvReac Unknown Unknown Verified 02/10/25 16:23 Home Medications Medication Instructions Recorded Confirmed Type acetaminophen 650 mg 650 mg PO .COMPLEX 11/15/20 02/10/25 History tablet,extended release (Arthritis Pain Relief (acetaminophen) ER) ketoconazole 2 % topical cream 1 applic topical BID #30 grams 10/05/24 02/10/25 Rx amlodipine 10 mg tablet 0 mg PO DAILY 01/17/25 02/10/25 History epinephrine 0.3 mg/0.3 mL 0.3 mg IM PRN PRN Anaphylaxis 01/17/25 02/10/25 History injection, auto-injector nitroglycerin 0.4 mg sublingual 0.4 mg sublingual Q5M PRN chest 01/18/25 02/10/25 Rx tablet pain #25 tabs apixaban 5 mg tablet (Eliquis) 5 mg PO BID #60 tabs 01/24/25 02/10/25 Rx Tudca 1 tab PO QAM 01/31/25 02/10/25 History atenolol 25 mg tablet 25 mg PO HS 01/31/25 02/10/25 History atorvastatin 20 mg tablet 20 mg PO HS 01/31/25 02/10/25 History cetirizine 10 mg tablet 10 mg PO QAM 01/31/25 02/10/25 History levothyroxine 125 mcg tablet 0 mcg PO QAM 01/31/25 02/10/25 History levothyroxine 125 mcg tablet 0 mcg PO QAM 01/31/25 02/10/25 History lisinopril 20 mg tablet 20 mg PO QPM 01/31/25 02/10/25 History tamsulosin 0.4 mg capsule 0.4 mg PO HS 01/31/25 02/10/25 History hydrochlorothiazide 25 mg tablet 25 mg PO QAM #90 tabs 02/01/25 02/10/25 Rx metoprolol succinate 50 mg 50 mg PO HS #90 tabs 02/01/25 02/10/25 Rx tablet,extended release 24 hr albuterol sulfate 90 mcg/actuation 2 puff inhalation Q4H PRN 02/10/25 02/10/25 History aerosol inhaler shortness of breath or wheezing clotrimazole 1 % topical cream 0 applic topical BID 02/10/25 02/10/25 History famotidine 40 mg tablet 0 mg PO HS 02/10/25 02/10/25 History fluticasone furoate 100 0 inh inhalation DAILY 02/10/25 02/10/25 History mcg/actuation blister powder for inhalation (Arnuity Ellipta) fluticasone propionate 50 2 spray intranasal HS 02/10/25 02/10/25 History mcg/actuation nasal spray,suspension ketoconazole 2 % shampoo 0 applic topical DAILY 02/10/25 02/10/25 History Patient History Medical History HTN (hypertension) hx of HTN; med changes made recently 2/2 new dx of afib and orthostatic hypotension (post 12/2024 hospital d/c pt was on fluid restriction for hyponatremia) History of congenital heart defect pt states coarctation of aorta repair age 6; denies issues since that time; does not follow with Cardio routinely "No doppler findings of significant proximal descending aorta coarctation on limited screening images" per 12/27/24 ECHO Orthostatic hypotension Velasco catheter in place History of epilepsy pt states he was taken off of medication in and has only had 1 sz since then () NSTEMI (non-ST elevated myocardial infarction) 12/24/24- during admission for sepsis (per records - felt likely due to stress from sepsis/demand ischemia); Preop appt with [facility] 02/08/25 LIZBETH (acute kidney injury) History of 12/2024 (creatinine was up to 10) - has since improved History of recent hospitalization Admitted 12/24/24-01/03/25- with sepsis, urinary retention, hyponatremia, PNA, NSTEMI 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; Discovered 01/24/25- started on Eliquis Paroxysmal atrial fibrillation Developed during 12/2024 [facility] admission for sepsis - cardiology started amiodarone but pt is not currently taking as of 01/31/25 PAT phone interview Hyponatremia During 12/24/24 [facility] admission (Na 110) (felt due to hypovolemia) Has since improved; pt states fluid restriction was lifted Pneumonia 12/2024- during [facility] admission- treated- resolved on most recent CXR Chronic GERD Asthma Hypercholesterolemia Benign essential hypertension Hypothyroidism Obstructive sleep apnea does not use device Surgical History History of colonoscopy H/O aortic coarctation repair age 6; pt states no issues since that time; not following with Cardio Family History Father Diabetes Hypertension Dyslipidemia Alzheimer disease Stroke Myocardial infarction Mother Diabetes Stroke Grandmother (Maternal) Diabetes Grandfather (Maternal) Lung cancer Aunt Breast cancer Denies family history of Ovarian cancer Prostate cancer COPD (chronic obstructive pulmonary disease) Colorectal cancer Asthma Social History Smoking Status: Former smoker Tobacco Type: Cigarettes Age Started Using Tobacco: 17; Age Quit Using Tobacco: 19; packs per day: 0.25; Second Hand Exposure: No; Do You Dip or Chew Tobacco: No; Hx Alcohol Use: No Hx Substance Use: No Preferred Language: [place] Communication Ability: Effective Visual Impairment: Limited Hearing Ability: Use of Hearing Aid Cupola Tender Helper Required: No Beliefs That Will Affect Care: None marital status: Single Current Living Situation: Alone current occupational status: employed 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 How many Children do You have: 0 Feels Safe at Home: Yes Safety Concerns: Feels Safe At This Time Childhood Exposure to Second-Hand Smoke: Yes (cigar) Diet: regular caffeine: Yes during the past year weight has: remained stable Dental Care, Regularly: No Physical Activity Frequency: Does not Exercise Seatbelt Use: always Sunscreen Use: No Gender Identity: Male Assistive Devices: Cane Review of Systems Review of Systems: All systems reviewed & are unremarkable except as noted in HPI & below Physical Exam Constitutional: no acute distress Respiratory: no respiratory distress and no labored breathing Neurologic: moves all extremities and awake Psychiatric: A+Ox3, euthymic affect Genitourinary: Velasco catheter intact draining clear yellow urine Results & Data Vital Signs (Past 12 Hours) Vital Signs Temp Pulse Resp BP Pulse Ox O2 Del Method 02/15/25 07:33 36.7 C 67 15 146/72 H 98 Room Air PG Care Time/CCT Total # of Minutes Spent Total Time Spent with Patient: Total time spent is greater than 50% in coordination of care (as documented) at patient's floor/unit and/or counseling patient: Coding Level of Care Code None Diagnoses Left renal mass N28.89
--- NOTE | 2025-02-15 18:04 | Hospitalist Progress Note ---
Date of Service February 15, 2025 Assessment & Plan (1) Syncope: Plan: -recently started on tamsulosin and had positive orthostatic vital signs on arrival. He also has been taking HCTZ, lisinopril, metoprolol, and atenolol at home accidentally after they were supposed to have been held since his last hospitalization. - Permanently discontinue HCTZ, lisinopril, amlodipine, and metoprolol, but will continue his atenolol -no further issues, awaiting upcoming nephrectomy (2) Urinary retention: Plan: -plans in place for nephrectomy due to renal mass that is suspicious for malignancy, with urology on 02/17. -Velasco catheter was removed during this admission for trial of void and again failed. -Velasco catheter replaced on 02/10. UA abnormal consistent with UTI, however urine culture with mixed organisms. -Creatinine mildly elevated above baseline at 1.4 on arrival and now improved to 1.22 after IVF's and stopping diuretics and lisinopril - Continue home tamsulosin with caution given orthostasis (3) Paroxysmal atrial fibrillation: Plan: Continue home atenolol for rate control-he was accidentally taking dual beta- blockade therapy with metoprolol and atenolol after discharge-metoprolol stopped - Continue Eliquis 5 mg p.o. twice daily oin hold for upcoming surgery, 02/17 (4) UTI (urinary tract infection): Plan: Continue ceftriaxone empirically continue thru surgery - Working on remain in the hospital until his nephrectomy on 02/17 Plan This patient is a 64-year-old male with history of paroxysmal atrial fibrillation on Eliquis, right tibial chronic DVT, PE, remote history of seizure disorder, left renal mass, urinary retention with enlarged prostate with current Velasco catheter in place, orthostatic hypotension, patulous esophagus/GERD, hypothyroidism, HTN, asthma, and recent admission at [facility] for Staphylococcus bacteremia/sepsis, acute kidney injury with creatinine of 10, severe hyponatremia, hyperkalemia, and rapid atrial fibrillation with myocardial demand ischemia. He went to rehab after that and was discharged to home on January 14 with a chronic Velasco catheter. He is now readmitted after having syncope in the medical transportation van on the way to his urology appointment for trial of void. Admission and Anticipated Discharge Date Admission Date: February 11, 2025 Subjective pt continues to do well, ambulating in [address], for upcoming surgery 02/17 for renal mass Physical Exam Physical Exam: pleasant, no distress cardiac is regular lungs are clear Results & Data Results & Data Vital Signs (Past 12 Hours) Vital Signs Temp Pulse Resp BP Pulse Ox O2 Del Method 02/15/25 15:16 97.2 F L 76 16 131/79 94 Room Air 02/15/25 07:33 98.1 F 67 15 146/72 H 98 Room Air Laboratory Results ordered labs in 02/16 PG Care Time/CCT Total # of Minutes Spent Total Time Spent with Patient: Total time spent is greater than 50% in coordination of care (as documented) at patient's floor/unit and/or counseling patient: Coding Level of Care Code 63629 SUB INP/OBS CARE 04/03MIN Diagnoses Syncope R55 Urinary retention R33.9 Paroxysmal atrial fibrillation I48.0 UTI (urinary tract infection) N39.0
[2025-02-16 06:56] LABS: Hematocrit (blood only) 35.2 % (42.0-52.0); Hemoglobin 11.9 g/dL (14.0-18.0); Mean Corpuscular Hemoglobin 28.9 pg (25.0-34.0); Mean Corpuscular Volume 85.4 fL (80.0-100.0); Platelet Count 298 K/uL (130-400); RDW Standard Deviation 42.5 fL (36.4-46.3); Red Blood Count 4.12 M/uL (4.70-6.10); White Blood Count 8.57 K/ul (4.8-10.8)
[2025-02-16 07:20] LABS: Anion Gap 7.0 (3-11); Blood Urea Nitrogen 20.0 mg/dl (6-23); Calcium 9.1 mg/dl (8.6-10.3); Carbon Dioxide 27.0 mmol/L (21-32); Chloride 105.0 mmol/L (98-107); Creatinine Clr Calc Pharmacy 81.5 ml/min; Glucose 97.0 mg/dl (70-99(Fasting)); Potassium 4.2 mmol/L (3.5-5.1); Sodium 139.0 mmol/L (136-145)
[2025-02-16] MEDS: ONDANSETRON INJ 2 MG/ML 2 ML VIAL IV PRN (07:36)
[2025-02-16] MEDS: POLYETHYLENE (MIRALAX) 17 GM PACK PO SCH (11:17)
--- NOTE | 2025-02-16 15:51 | Hospitalist Progress Note ---
Date of Service February 16, 2025 Assessment & Plan (1) Syncope: (2) Urinary retention: (3) Paroxysmal atrial fibrillation: (4) UTI (urinary tract infection): (5) Left renal mass: Plan This patient is a 64-year-old male with history of paroxysmal atrial fibrillation on Eliquis, right tibial chronic DVT, PE, remote history of seizure disorder, left renal mass, urinary retention with enlarged prostate with current Liz catheter in place, orthostatic hypotension, patulous esophagus/GERD, hypothyroidism, HTN, asthma, and recent admission at [facility] for Staphylococcus bacteremia/sepsis, acute kidney injury with creatinine of 10, severe hyponatremia, hyperkalemia, and rapid atrial fibrillation with myocardial demand ischemia. He went to rehab after that and was discharged to home on January 14 with a chronic Liz catheter. He is now readmitted after having syncope in the medical transportation van on the way to his urology appointment for trial of void. # syncope - this was related to hypotension/orthostatic hypotension. Flomax had been recently started at the time of his syncope. Multiple blood pressure meds were intended to have been held after his last hospitalization but he had continued taking hydrochlorothiazide, lisinopril, metoprolol and atenolol. - brain MRI was normal, suspicion for seizure is low - Permanently discontinue HCTZ, lisinopril, amlodipine, and atenolol - doing well from the standpoint, no further testing indicated # paroxysmal atrial fibrillation - apixaban is held for surgery tomorrow - I will replace the atenolol with metoprolol which has more benefits for rate control, however I will wait until stable postoperatively before making any changes # urinary tract infection - continue ceftriaxone # Urinary retention - continue liz catheter, tamsulosin # left renal massplan for nephrectomy tomorrow morning by urologist Recent LIZBETH related to sepsis HTN - continue atenolol, meds decreased this admission SANDRA - doesn't use CPAP Hypothyroidism on replacement DVT prophylaxis - SCDs, resume apixaban postoperatively when okay with surgeon Admission and Anticipated Discharge Date Admission Date: February 11, 2025 Subjective doing well he has been doing laps in the hallway, has some slight lightheadedness when first sitting up or standing up but otherwise no further lightheaded or presyncopal episodes tolerating activity well no shortness of of breath or chest pain, no abdominal pain or nausea anticipating nephrectomy tomorrow Physical Exam Physical Exam: Last 24h vitals reviewed GEN: he has been up with his walker doing laps in the hallway HEENT: pupils equal, sclerae anicteric, moist MM RESP: normal WOB, CTAB CV: reg no mrg ABD: soft/nt/nd +BT : Liz catheter with clear yellow urine SKIN: warm and dry, no generalized rashes. a lot of seborrheic dermatitis at the hairline extremities: Warm and well-perfused no leg edema NEURO: AOx person, place, and situation. Face symmetric, speech normal, moves 4 ext spontaneously and equally Results & Data Results & Data Vital Signs (Past 12 Hours) Vital Signs Temp Pulse Resp BP Pulse Ox O2 Del Method 02/16/25 14:48 36.6 C 73 18 119/70 95 Room Air 02/16/25 07:12 36.6 C 63 18 145/93 H 95 Room Air Laboratory Results blood count is 8 hemoglobin is 11.9 which is stable platelets are normal Chemistry panel is normal creatinine is 1.09 which is stable PG Care Time/CCT Total # of Minutes Spent Total Time Spent with Patient: Total time spent is greater than 50% in coordination of care (as documented) at patient's floor/unit and/or counseling patient: Coding Level of Care Code 69588 SUB INP/OBS CARE 2/35MIN Diagnoses Syncope R55 Urinary retention R33.9 Paroxysmal atrial fibrillation I48.0 UTI (urinary tract infection) N39.0 Left renal mass N28.89
[2025-02-16] MEDS: SENNA 8.6 MG TAB PO SCH (21:31)
[2025-02-17] MEDS: LACTATED RINGER'S 1,000 ML IV SCH (06:47)
--- NOTE | 2025-02-17 07:20 | Urology Progress Note ---
Date of Service February 17, 2025 Assessment & Plan (1) Renal mass: Plan: We reviewed his left renal mass and the plan for robot-assisted laparoscopic radical nephrectomy. We reviewed risks and benefits of surgery including risk of bleeding, infection, injury to nearby structures, need for additional procedures, need for open conversion. He expressed understanding and would like to proceed with surgery. He has been on antibiotics over the past week for possible UTI and is not having any current infectious symptoms. Admission and Anticipated Discharge Date Admission Date: February 11, 2025 Subjective Feeling well this morning, denies any fevers or chills. Denies any new symptoms. He has been holding [employer] leading up to surgery Reports having some blood in the urine when he ambulates. Review of Systems Review of Systems: 10 point review of systems negative exce pt for otherwise indicated. Physical Exam Constitutional: well developed and well nourished; no acute distress Eyes: + anicteric sclerae; pupils not irregula r Respiratory: normal respiratory effort; no respiratory distress, does not use accessory muscles and no cough Cardiovascular: well perfused Gastrointestinal (Abdomen): Inspection/Auscultation: abdomen normal to inspection; abdomen not distended Musculoskeletal: Extremities: extremities normal to inspection Skin: normal turgor; no rashes and no lesions Neurologic: moves all extremities and awake Psychiatric: Orientation: alert and oriented x 3 Results & Data Vital Signs (Past 12 Hours) Vital Signs Temp Pulse Pulse Resp BP Pulse Ox O2 Del Method 02/17/25 06:44 36.7 C 75 20 153/82 H 95 Room Air 02/17/25 06:27 36.5 C 74 18 138/79 95 Room Air 02/16/25 21:29 36.4 C L 77 20 134/80 94 Room Air PG Care Time/CCT Total # of Minutes Spent Total Time Spent with Patient: Total time spent is greater than 50% in coordination of care (as documented) at patient's floor/unit and/or counseling patient: Coding Level of Care Code 79733 SUB INP/OBS CARE 04/03MIN Diagnoses Renal mass N28.89
[2025-02-17] MEDS: BUPIVACAINE 0.5 % 5 MG/1 ML MPF 30ML VIAL ONE (12:24)
[2025-02-17] MEDS: SURGICEL ABSORB HEMOSTAT 2IN X 14IN TOP ONE (12:26)
[2025-02-17] MEDS: FLOSEAL HEMOSTATIC MATRIX 10ML TOP ONE (12:26)
[2025-02-17] MEDS: TISSEEL FIBRIN SEALANT 10ML TOP ONE (12:28)
--- NOTE | 2025-02-17 12:54 | Operative Report ---
PG Post Operative Report Pre & Post Diagnosis Operation Date: 02/17/25 07:30 Pre-Op Diagnosis: left renal mass, concerning for malignancy Post-Op Diagnosis: left renal mass, concerning for malignancy I identified the patient and participated in the time-out.: Yes Procedure Operation Date: 02/17/25 07:30 Actual Procedures p Robotic assisted Laparoscopic Nephrectomy Radical Left(Left) - Patricio Marie MD Surgeon Patricio Marie MD [employer] SIERRA Perez Estimated Blood Loss 25 Findings Consistent with Post-Op Diagnosis Specimens Left kidney Drains Velasco catheter per urethra Anesthesia Type General Complications none Disposition Accompanied Patient To Recovery: Yes Disposition: Recovery Room Indications This is a 64-year-old male followed by urology for left renal mass concerning for malignancy. He is brought to the OR for left radical nephrectomy. Description of Procedure The patient was identified and informed consent was obtained. He was marked on the left side and was brought to the operating room where general anesthesia was initiated. He was placed in a flank position with the left side elevated. All pressure points were carefully padded. A timeout was then performed. A surgical marker was used to draw a line approximately 7 cm to the left of the umbilicus, in the mid clavicular area. Anticipated port sites were marked starting approximately 2 fingerbreadths below the costal margin. Subsequent ports were anticipated to be 6 to 7 cm spaced down this line. An incision was made at the second anticipated site, then dissection was carried down to the fascia. A Veress needle was used to obtain access to the peritoneum. Good position was confirmed with a negative aspiration, appropriate drop test and low opening insufflation pressure. The abdomen was then inflated with CO2 to 15 mmHg. The first robotic port was then placed and the camera was inserted. The abdominal cavity was surveyed. No injury to intra-abdominal contents was appreciated. There was minimal adhesions. The remaining 3 robotic ports were placed under direct visualization. A 12 mm education assistant port was then placed in the midline above the umbilicus. The robot was then docked. I reflected the colon along the white line of Toldt to expose Gerota's fascia. Once the colon was sufficiently reflected, the gonadal vessels and left ureter were identified. These were then dissected cephalad to identify the renal hilum. He appeared to have a single renal artery and a single renal vein, although he had additional paresthetic vessels and inflammation that made dissection somewhat challenging. Once I had good exposure of the hilum, I used the robotic stapler to divide first the renal artery and then the renal vein using vascular load john. There was good hemostasis. I then turned my attention to freeing up the posterior and superior aspects of the kidney. Again there was a lot of inflammation and parasitic vessels which caused this to take significantly longer than normal. Eventually the kidney was completely freed up. I used an additional vascular staple load to divide the conal fat with the ureter and gonadal vessels. Hemostasis was ensured. A piece of Surgicel was used at the renal hilum as well as at the lower aspect of the incision area. The robot was dedocked. The lowest incision was extended to allow the kidney to be extracted. The kidney was then passed off for pathologic analysis. The incisions were then closed. The peritoneum at the extraction site was closed using a running 2-0 Vicryl suture. The fascial layer was then closed using interrupted 0 Vicryl [id number]. All wounds and the fascia were anesthetized using 0.5% Marcaine. The extraction site was then closed with a subcutaneous layer of running 2-0 Vicryl and the skin was closed with 4-0 Monocryl running subcuticular. The additional sites were closed with interrup yohan buried 4-0 Monocryl's. The patient was then awakened from anesthesia and brought to the PACU in stable condition. All sponge and instrument counts were correct at the end of the case. Of note, SIERRA Perez, acted as bedside education assistant for the entire case, helping with initial positioning, access, retraction, dissection and with closing. I attest to the content of the Intraoperative Record and any orders documented therein. Any exceptions are noted below.
--- NOTE | 2025-02-17 13:36 | Anesthesiology Progress Note ---
Date of Service February 17, 2025 Anesthesia Post Procedure Vital Signs Vital Signs: Temp Pulse Pulse Pulse Resp BP BP 02/17/25 13:25 110 H 18 109/59 L 02/17/25 13:15 107 H 20 106/56 L 02/17/25 13:05 105 H 18 105/51 L 02/17/25 12:55 99.3 F 96 H 17 98/58 L 02/17/25 06:44 98.1 F 75 20 153/82 H 02/17/25 06:27 97.7 F 74 18 138/79 02/16/25 21:29 97.5 F L 77 20 134/80 02/16/25 14:48 97.9 F 73 18 119/70 Pulse Ox O2 Del Method O2 Flow Rate 02/17/25 13:25 97 Oxymask 6 02/17/25 13:15 96 Oxymask 10 02/17/25 13:05 97 Oxymask 10 02/17/25 12:55 97 Oxymask 10 02/17/25 06:44 95 Room Air 02/17/25 06:27 95 Room Air 02/16/25 21:29 94 Room Air 02/16/25 14:48 95 Room Air Transfer of Care Handoff Completed per policy Notes Mental Status: alert / awake / arousable and participated in evaluation Patient Amnestic to Procedure: Yes Nausea / Vomiting: adequately controlled Pain: adequately controlled Airway Patency, RR, SpO2: stable & adequate BP & HR: stable & adequate Hydration State: stable & adequate Anesthetic Complications: no major complications apparent and Pt Satisfied with anesthetic care
[2025-02-17] MEDS: METOPROLOL TARTRATE 25 MG TAB PO ONE (17:23)
[2025-02-17 18:01] LABS: Hematocrit (blood only) 34.7 % (42.0-52.0); Hemoglobin 11.8 g/dL (14.0-18.0)
[2025-02-17 18:16] LABS: Anion Gap 8.0 (3-11); Blood Urea Nitrogen 20.0 mg/dl (6-23); Calcium 9.1 mg/dl (8.6-10.3); Carbon Dioxide 27.0 mmol/L (21-32); Chloride 104.0 mmol/L (98-107); Creatinine Clr Calc Pharmacy 61.7 ml/min; Glucose 162.0 mg/dl (70-99(Fasting)); Magnesium 1.8 mg/dl (1.7-2.4); Potassium 4.5 mmol/L (3.5-5.1); Sodium 139.0 mmol/L (136-145)
[2025-02-17] MEDS: METOPROLOL SUCC 25MG EXT REL TAB PO SCH (20:31)
--- NOTE | 2025-02-17 20:36 | Hospitalist Progress Note ---
Date of Service February 17, 2025 Assessment & Plan (1) Syncope: (2) Urinary retention: (3) Paroxysmal atrial fibrillation: (4) UTI (urinary tract infection): (5) Left renal mass: Plan This patient is a 64-year-old male with history of paroxysmal atrial fibrillation on Eliquis, right tibial chronic DVT, PE, remote history of seizure disorder, left renal mass, urinary retention with enlarged prostate with current Liz catheter in place, orthostatic hypotension, patulous esophagus/GERD, hypothyroidism, HTN, asthma, and recent admission at [facility] for Staphylococcus bacteremia/sepsis, acute kidney injury with creatinine of 10, severe hyponatremia, hyperkalemia, and rapid atrial fibrillation with myocardial demand ischemia. He went to rehab after that and was discharged to home on January 14 with a chronic Liz catheter. He was readmitted after having syncope in the medical transportation van on the way to his urology appointment for trial of void. Syncope was related to hypotension/medications and these were adjusted. He underwent planned robotic assisted L nephrectomy 02/17 # postop from robotic assisted L nephrectomy 02/17 for L renal mass, suspicious for neoplasm -hypoxia postop resolving -tachycardic - sinus on tele, hx PAF. Checked labs - H/H BMP and mag which are stable Mag 1.8 Hg unchanged from preop Cr increased to 1.44 as expected post nephrectomy -one time dose metoprolol tartrate 25mg then start metoprolol succinate 25 mg HS, stopped atenolol -pain control # syncope - this was related to hypotension/orthostatic hypotension. Flomax had been recently started at the time of his syncope. Multiple blood pressure meds were intended to have been held after his last hospitalization but he had continued taking hydrochlorothiazide, lisinopril, metoprolol and atenolol. - brain MRI was normal, suspicion for seizure is low - Permanently discontinue HCTZ, lisinopril, amlodipine, and atenolol - doing well from the standpoint, no further testing indicated # paroxysmal atrial fibrillation - apixaban is held for surgery -resume postop when ok with urologist, earliest Friday, discussed with urology - I will replace the atenolol with metoprolol which has more benefits for rate control, however I will wait until stable postoperatively before making any changes # urinary tract infection - continue ceftriaxone # Urinary retention - continue liz catheter, tamsulosin Recent LIZBETH related to sepsis HTN - cont metoprolol, meds decreased/adjusted this admission SANDRA - doesn't use CPAP Hypothyroidism on replacement DVT prophylaxis - SCDs, start SQ heparin tonight, resume apixaban postoperatively when okay with surgeon Admission and Anticipated Discharge Date Admission Date: February 11, 2025 Subjective Seen postop at apx 5 pm. Aox4 and about to eat dinner. Had been sedated while in PACU with some hypoxia but rapidly improved now on 3L pnc. C/O postoperative abdominal pain. Reviewed tele and has had sinus tachycardia from 105-115. BP normal, No dyspnea or CP Physical Exam 2 Physical Exam: Last 24h vitals reviewed GEN: sitting up in bed with dinner tray, looks mildly uncomfortable HEENT: pupils equal, sclerae anicteric, moist MM RESP: normal WOB, CTAB CV: tachy reg no mrg ABD: nondistended : Liz catheter with clear yellow urine SKIN: warm and dry, no generalized rashes. a lot of seborrheic dermatitis at the hairline extremities: Warm and well-perfused no leg edema NEURO: AOx person, place, and situation. Face symmetric, speech normal, moves 4 ext spontaneously and equally Results & Data Results & Data Vital Signs (Past 12 Hours) Vital Signs Temp Pulse Pulse Pulse Pulse Resp BP 02/17/25 19:29 36.8 C 101 H 20 116/68 02/17/25 18:29 36.4 C L 111 H 18 02/17/25 18:19 02/17/25 17:29 108 H 18 02/17/25 17:24 108 H 02/17/25 17:14 106 H 18 02/17/25 16:59 110 H 02/17/25 16:44 37.0 C 114 H 18 02/17/25 16:00 36.7 C 109 H 20 02/17/25 15:30 37.1 C 111 H 18 02/17/25 15:00 111 H 20 02/17/25 14:30 112 H 19 02/17/25 14:15 110 H 19 02/17/25 14:00 109 H 22 02/17/25 13:45 108 H 20 02/17/25 13:35 36.5 C 112 H 18 02/17/25 13:25 110 H 18 02/17/25 13:15 107 H 20 02/17/25 13:05 105 H 18 02/17/25 12:55 37.4 C 96 H 17 BP Pulse Ox O2 Del Method O2 Flow Rate 02/17/25 19:29 94 Room Air 02/17/25 18:29 129/71 95 Room Air 02/17/25 18:19 Room Air 02/17/25 17:29 128/81 94 Room Air 02/17/25 17:24 02/17/25 17:14 118/81 95 Room Air 02/17/25 16:59 112/75 96 Nasal Cannula 2 02/17/25 16:44 113/76 98 Nasal Cannula 2 02/17/25 16:00 102/56 L 97 Nasal Cannula 3 02/17/25 15:30 106/57 L 97 Nasal Cannula 3 02/17/25 15:00 103/51 L 96 Nasal Cannula 3 02/17/25 14:30 111/51 L 96 Nasal Cannula 3 02/17/25 14:15 97/53 L 96 Nasal Cannula 3 02/17/25 14:00 107/58 L 95 Nasal Cannula 3 02/17/25 13:45 99/58 L 95 Nasal Cannula 3 02/17/25 13:35 107/55 L 91 Room Air 02/17/25 13:25 109/59 L 97 Oxymask 6 02/17/25 13:15 106/56 L 96 Oxymask 10 02/17/25 13:05 105/51 L 97 Oxymask 10 02/17/25 12:55 98/58 L 97 Oxymask 10 Laboratory Results 02/17/25 17:41 02/17/25 17:41 Mag 1.8 Hg unchanged from preop Cr increased to 1.44 as expected post nephrectomy PG Care Time/CCT Total # of Minutes Spent Total Time Spent with Patient: Total time spent is greater than 50% in coordination of care (as documented) at patient's floor/unit and/or counseling patient: Coding Level of Care Code 79209 SUB INP/OBS CARE 2/35MIN Diagnoses Syncope R55 Urinary retention R33.9 Paroxysmal atrial fibrillation I48.0 UTI (urinary tract infection) N39.0 Left renal mass N28.89
[2025-02-17] MEDS: HEPARIN SOD 5,000 UNIT/0.5 ML VIAL SQ SCH (22:02)
[2025-02-17] MEDS: SIMETHICONE 80 MG CHEW PO PRN (22:20)
[2025-02-18] MEDS: ALUMINUM/MAGNESIUM/SIMETH (MAALOX MAX) 30 ML UDC PO STA (04:27)
[2025-02-18 06:13] LABS: Hematocrit (blood only) 36.8 % (42.0-52.0); Hemoglobin 12.0 g/dL (14.0-18.0); Immature Granulocytes # (auto) 0.08 K/uL (0.01-0.20); Immature Granulocytes % (auto) 0.7 %; Mean Corpuscular Hemoglobin 28.4 pg (25.0-34.0); Mean Corpuscular Volume 87.0 fL (80.0-100.0); Platelet Count 298 K/uL (130-400); RDW Standard Deviation 44.3 fL (36.4-46.3); Red Blood Count 4.23 M/uL (4.70-6.10); White Blood Count 11.78 K/ul (4.8-10.8)
[2025-02-18 06:26] LABS: Anion Gap 7.0 (3-11); Blood Urea Nitrogen 17.0 mg/dl (6-23); Calcium 9.3 mg/dl (8.6-10.3); Carbon Dioxide 28.0 mmol/L (21-32); Chloride 102.0 mmol/L (98-107); Creatinine Clr Calc Pharmacy 57.0 ml/min; Glucose 126.0 mg/dl (70-99(Fasting)); Potassium 4.6 mmol/L (3.5-5.1); Sodium 137.0 mmol/L (136-145)
--- NOTE | 2025-02-18 08:41 | Urology Progress Note ---
<Statement entered by Ptaricio Marie MD - 02/18/25 13:14> 64-year-old male s/p left robotic radical nephrectomy. He is recovering reasonably well. He is tolerating some food with no nausea or vomiting. He has not been ambulating yet. He is not having much incisional pain and incisions appear to be intact salazar in place. I suspect shoulder pain and epigastric pain is irritation from pneumoperitoneum and will hopefully resolve in the next 24-48 hours. We will plan to remove his liz catheter in the urology office. Can resume anticoagulation on 02/19/25 Unless he is having new infectious symptoms, I think it would be reasonable to stop antibiotics on 02/19/25 as well. Urology will follow along. Date of Service February 18, 2025 Assessment & Plan (1) Renal mass: Plan -POD #1 s/p Robotic assisted Laparoscopic Left Radical Nephrectomy with Dr. Marie -Pt afebrile, hemodynamically stable -Labs -WBCs 11.78, Hemoglobin 12.0, Creatinine 1.56 as expected post nephrectomy -Liz intact and draining clear yellow urine -Incisions appropriate -Maintain Liz catheter -Continue supportive care and pain management as needed -Continue antibiotic therapy for another 1-2 days -Can likely resume Eliquis tomorrow 02/19 -Urology will follow Admission and Anticipated Discharge Date Admission Date: February 11, 2025 Subjective Patient seen at bedside this morning. Awake and resting bed on arrival. No acute distress. Liz intact and draining clear yellow urine. Was treated overnight for gas pains with simethicone. Still having some abdominal discomfort/gas pains and feels bloated. No nausea or vomiting. Denies fever or chills. Has been belching, no flatus. Review of Systems Constitutional: as per Subjective / HPI Gastrointestinal: as per Subjective / HPI Genitourinary: + as per Subjective / HPI Physical Exam Constitutional: no acute distress Respiratory: no respiratory distress and no labored breathing Gastrointestinal (Abdomen): Abd soft. No pain with palpation. Incisions appropriate, Dermabond intact. Neurologic: moves all extremities and awake Psychiatric: A+Ox3, euthymic affect Genitourinary: Lzi intact draining clear yellow urine Results & Data Vital Signs (Past 12 Hours) Vital Signs Temp Pulse Pulse Resp BP BP Pulse Ox 02/18/25 07:53 36.5 C 86 20 148/87 H 92 02/18/25 03:40 36.7 C 77 20 128/67 92 02/17/25 22:43 36.7 C 81 17 123/76 93 O2 Del Method 02/18/25 07:53 Room Air 02/18/25 03:40 Room Air 02/17/25 22:43 Room Air PG Care Time/CCT Total # of Minutes Spent Total Time Spent with Patient: Total time spent is greater than 50% in coordination of care (as documented) at patient's floor/unit and/or counseling patient: Coding Level of Care Code None Diagnoses Renal mass N28.89
[2025-02-18] MEDS: KETOCONAZOLE 2% CR 15 GM TUBE EXT SCH (14:49)
--- NOTE | 2025-02-18 16:19 | Hospitalist Progress Note ---
Date of Service February 18, 2025 Assessment & Plan (1) Syncope: (2) Urinary retention: (3) Paroxysmal atrial fibrillation: (4) UTI (urinary tract infection): (5) Left renal mass: Plan This patient is a 64-year-old male with history of paroxysmal atrial fibrillation on Eliquis, right tibial chronic DVT, PE, remote history of seizure disorder, left renal mass, urinary retention with enlarged prostate with current Liz catheter in place, orthostatic hypotension, patulous esophagus/GERD, hypothyroidism, HTN, asthma, and recent admission at [facility] for Staphylococcus bacteremia/sepsis, acute kidney injury with creatinine of 10, severe hyponatremia, hyperkalemia, and rapid atrial fibrillation with myocardial demand ischemia. He went to rehab after that and was discharged to home on January 14 with a chronic Liz catheter. He was readmitted after having syncope in the medical transportation van on the way to his urology appointment for trial of void. Syncope was related to hypotension/medications and these were adjusted. He underwent planned robotic assisted L nephrectomy 02/17 # postop from robotic assisted L nephrectomy 02/17 for L renal mass, suspicious for neoplasm -hypoxia and tachycardia postop resolved -Cr increased to 1.5 as expected post nephrectomy - postoperative care per urology service - await pathology # syncope - this was related to hypotension/orthostatic hypotension. Flomax had been recently started at the time of his syncope. Multiple blood pressure meds were intended to have been held after his last hospitalization but he had continued taking hydrochlorothiazide, lisinopril, metoprolol and atenolol. - brain MRI was normal, suspicion for seizure is low - Permanently discontinue HCTZ, lisinopril, amlodipine, and atenolol - doing well from the standpoint, no further testing indicated # paroxysmal atrial fibrillation - apixaban is held for surgery -resume postop when ok with urologist, earliest Friday, discussed with urology - continue metoprolol succinate 25 mg p.o. at bedtime # urinary tract infection - treated. continue ceftriaxone postoperatively until okay to stop her urology # Urinary retention - continue liz catheter, tamsulosin Recent LIZBETH related to sepsis HTN - cont metoprolol, meds decreased/adjusted this admission SANDRA - doesn't use CPAP Hypothyroidism on replacement DVT prophylaxis - SQ heparin, resume apixaban postoperatively when okay with surgeon Postoperative PT and OT reevaluations ordered , discussed with care aide Admission and Anticipated Discharge Date Admission Date: February 11, 2025 Subjective The patient is a 60-year-old male originally admitted with syncope who underwent a left nephrectomy yesterday. Vital signs show resolution of sinus tachycardia from last evening. Blood pressures are normal. Saturating at 92% on room air, afebrile. Good urine output. WBC 11.7, hemoglobin 12 (unchanged from 11.8 yesterday). Chemistry panel: sodium 137, potassium 4.6, BUN 17, creatinine 1.56 (similar to yesterday evening). Magnesium 1.8 last night. Pathology results on renal mass pending. Pain managed with low-dose oxycodone. he is resting comfortably in bed he has been able to eat breakfast and lunch without increased abdominal pain or nausea does have postoperative abdominal/back pain which has been controlled with oral oxycodone. no shortness of breath or chest pain Physical Exam Physical Exam: General Appearance: Normal. Vital signs: Saturating at 92% on room air, afebrile. HEENT: Within normal limits. Respiratory: Respirations nonlabored, no rhonchi rales or wheezes. Cardiovascular: Regular rate and rhythm, no murmur. Gastrointestinal: Abdomen soft NT/ND, normal active bowel tones. Extremities: warm and well perfused, no LE edema. Liz catheter with clear yellow urine Skin: Warm and dry, no rash. Neurological: AOx4, normal speech and mentation, bucio x 4. Psychiatric: Normal. Results & Data Results & Data Vital Signs (Past 12 Hours) Vital Signs Temp Pulse Pulse Pulse Resp BP Pulse Ox 02/18/25 14:32 87 02/18/25 11:48 36.5 C 90 20 126/84 95 02/18/25 09:49 02/18/25 08:00 84 02/18/25 07:53 36.5 C 86 20 148/87 H 92 O2 Del Method 02/18/25 14:32 02/18/25 11:48 Room Air 02/18/25 09:49 Room Air 02/18/25 08:00 02/18/25 07:53 Room Air Laboratory Results - Laboratory Studies: - WBC: 11.7 - Hemoglobin: 12 - Sodium: 137 - Potassium: 4.6 - BUN: 17 - Creatinine: 1.56 - Magnesium: 1.8 PG Care Time/CCT Total # of Minutes Spent Total Time Spent with Patient: Total time spent is greater than 50% in coordination of care (as documented) at patient's floor/unit and/or counseling patient: Coding Level of Care Code 33382 SUB INP/OBS CARE 2/35MIN Diagnoses Syncope R55 Urinary retention R33.9 Paroxysmal atrial fibrillation I48.0 UTI (urinary tract infection) N39.0 Left renal mass N28.89
[2025-02-19 06:26] LABS: Hematocrit (blood only) 33.6 % (42.0-52.0); Hemoglobin 11.4 g/dL (14.0-18.0); Immature Granulocytes # (auto) 0.07 K/uL (0.01-0.20); Immature Granulocytes % (auto) 0.6 %; Mean Corpuscular Hemoglobin 29.4 pg (25.0-34.0); Mean Corpuscular Volume 86.6 fL (80.0-100.0); Platelet Count 269 K/uL (130-400); RDW Standard Deviation 43.7 fL (36.4-46.3); Red Blood Count 3.88 M/uL (4.70-6.10); White Blood Count 11.30 K/ul (4.8-10.8)
[2025-02-19 07:05] LABS: Anion Gap 6.0 (3-11); Blood Urea Nitrogen 14.0 mg/dl (6-23); Calcium 9.0 mg/dl (8.6-10.3); Carbon Dioxide 29.0 mmol/L (21-32); Chloride 101.0 mmol/L (98-107); Creatinine Clr Calc Pharmacy 57.7 ml/min; Glucose 100.0 mg/dl (70-99(Fasting)); Potassium 4.1 mmol/L (3.5-5.1); Sodium 136.0 mmol/L (136-145)
--- NOTE | 2025-02-19 10:41 | Urology Progress Note ---
Date of Service February 19, 2025 Assessment & Plan (1) Renal mass: Plan: Status post left radical nephrectomy Creatinine 1.5, stable, appropriate for his surgery Pneumoperitoneum related pain to the right shoulder, gradually improving Attempting to strengthen himself Urine clear, Velasco catheter in place and will remain in place Okay to resume anticoagulation today From a urological standpoint, he is suited for discharge to a rehab center or appropriate location whenever medically determined to be appropriate Admission and Anticipated Discharge Date Admission Date: February 11, 2025 Subjective Gradually improving He was sitting at the edge of the bed on initial arrival Reports that his shoulder is his biggest complaint, this is moderately better than it was yesterday but still bothersome He has only minimal discomfort around his abdomen. He also reports that he does not feel he is capable of achieving his normal activities at home quite yet, he is working with PT and OT Physical Exam Physical Exam: Abdomen soft, incisions appropriate Results & Data Vital Signs (Past 12 Hours) Vital Signs Temp Pulse Pulse Pulse Resp BP Pulse Ox 02/19/25 07:36 73 02/19/25 07:23 36.7 C 78 19 142/81 H 96 02/19/25 02:58 37.2 C 75 18 133/77 97 02/19/25 00:00 108 H 02/18/25 23:01 96 02/18/25 23:00 36.7 C 99 H 24 122/99 90 O2 Del Method O2 Flow Rate 02/19/25 07:36 02/19/25 07:23 Nasal Cannula 2 02/19/25 02:58 Nasal Cannula 2 02/19/25 00:00 02/18/25 23:01 Nasal Cannula 2 02/18/25 23:00 Room Air PG Care Time/CCT Total # of Minutes Spent Total Time Spent with Patient: Total time spent is greater than 50% in coordination of care (as documented) at patient's floor/unit and/or counseling patient: Coding Level of Care Code 07361 SUB INP/OBS CARE 04/03MIN Diagnoses Renal mass N28.89
--- NOTE | 2025-02-19 18:16 | Hospitalist Progress Note ---
Date of Service February 19, 2025 Assessment & Plan (1) Syncope: (2) Urinary retention: (3) Paroxysmal atrial fibrillation: (4) UTI (urinary tract infection): (5) Left renal mass: Plan This patient is a 64-year-old male with history of paroxysmal atrial fibrillation on Eliquis, right tibial chronic DVT, PE, remote history of seizure disorder, left renal mass, urinary retention with enlarged prostate with current Liz catheter in place, orthostatic hypotension, patulous esophagus/GERD, hypothyroidism, HTN, asthma, and recent admission at [facility] for Staphylococcus bacteremia/sepsis, acute kidney injury with creatinine of 10, severe hyponatremia, hyperkalemia, and rapid atrial fibrillation with myocardial demand ischemia. He went to rehab after that and was discharged to home on January 14 with a chronic Liz catheter. He was readmitted after having syncope in the medical transportation van on the way to his urology appointment for trial of void. Syncope was related to hypotension/medications and these were adjusted. He underwent planned robotic assisted L nephrectomy 02/17 # postop from robotic assisted L nephrectomy 02/17 for L renal mass, suspicious for neoplasm -Cr increased to 1.5 as expected post nephrectomy, stable - postoperative care per urology service - suitable for discharge to rehab setting at this time - await pathology # syncope - this was related to hypotension/orthostatic hypotension. Flomax had been recently started at the time of his syncope. Multiple blood pressure meds were intended to have been held after his last hospitalization but he had continued taking hydrochlorothiazide, lisinopril, metoprolol and atenolol. - brain MRI was normal, suspicion for seizure is low - Permanently discontinue HCTZ, lisinopril, amlodipine, and atenolol - doing well from the standpoint, no further testing indicated # paroxysmal atrial fibrillation - apixaban was held for surgery -resume tonight which is okay per today's urology note - continue metoprolol succinate 25 mg p.o. at bedtime # urinary tract infection - treated. continue ceftriaxone postoperatively until okay to stop her urology # Urinary retention - continue liz catheter, tamsulosin Recent LIZBETH related to sepsis HTN - cont metoprolol, meds decreased/adjusted this admission SANDRA - doesn't use CPAP Hypothyroidism on replacement DVT prophylaxis - resume apixaban Postoperative PT and OT reevaluations recommend SNF / rehab Admission and Anticipated Discharge Date Admission Date: February 11, 2025 Subjective he continues to have abdominal pain bilateral upper quadrants especially and some radiation to the shoulders from gas insufflation, he is eating though only fair appetite he had some nausea this morning but no vomiting no shortness of breath or chest pain Physical Exam Physical Exam: General Appearance: Normal. Vital signs: reviewed in EMR and unremarkable HEENT: Within normal limits. Respiratory: Respirations nonlabored, no rhonchi rales or wheezes. Cardiovascular: Regular rate and rhythm, no murmur. Gastrointestinal: Abdomen soft diffusely tender mildly distended, normal active bowel tones. Extremities: warm and well perfused, no LE edema. Liz catheter with clear yellow urine Skin: Warm and dry, no diffuse rash. he has a lot of seborrheic dermatitis around his salazar line and neck but he declines treatment for this Neurological: AOx4, normal speech and mentation, bucio x 4. Psychiatric: Normal. Results & Data Results & Data Vital Signs (Past 12 Hours) Vital Signs Temp Pulse Pulse Resp BP Pulse Ox O2 Del Method 02/19/25 15:57 36.4 C L 77 21 124/75 99 Nasal Cannula 02/19/25 12:04 36.4 C L 80 19 113/74 97 Nasal Cannula 02/19/25 07:36 73 02/19/25 07:23 36.7 C 78 19 142/81 H 96 Nasal Cannula O2 Flow Rate 02/19/25 15:57 2 02/19/25 12:04 2 02/19/25 07:36 02/19/25 07:23 2 Laboratory Results sodium 136 potassium 4.1 creatinine 1.54 which is stable white blood count 11 and hemoglobin 11 which is stable PG Care Time/CCT Total # of Minutes Spent Total Time Spent with Patient: Total time spent is greater than 50% in coordination of care (as documented) at patient's floor/unit and/or counseling patient: Coding Level of Care Code 25419 SUB INP/OBS CARE 2/35MIN Diagnoses Syncope R55 Urinary retention R33.9 Paroxysmal atrial fibrillation I48.0 UTI (urinary tract infection) N39.0 Left renal mass N28.89
[2025-02-19] MEDS: MAGNESIUM SULFATE / D5W 1 GM/100 ML BAG IV ONE (19:44)
[2025-02-19] MEDS: LACTATED RINGER'S 500 ML IV ONE (19:51)
[2025-02-19] MEDS: METOPROLOL TARTRATE 1 MG/ML VIAL IV STA ×2 (20:42→21:15)
[2025-02-19] MEDS: APIXABAN 5 MG TABLET PO SCH (21:15)
[2025-02-19] MEDS: LACTATED RINGER'S 1,000 ML IV SCH (21:17)
[2025-02-19 21:29] LABS: Hematocrit (blood only) 40.5 % (42.0-52.0); Hemoglobin 13.3 g/dL (14.0-18.0); Immature Granulocytes # (auto) 0.12 K/uL (0.01-0.20); Immature Granulocytes % (auto) 0.8 %; Mean Corpuscular Hemoglobin 28.6 pg (25.0-34.0); Mean Corpuscular Volume 87.1 fL (80.0-100.0); Platelet Count 299 K/uL (130-400); RDW Standard Deviation 44.6 fL (36.4-46.3); Red Blood Count 4.65 M/uL (4.70-6.10); White Blood Count 14.57 K/ul (4.8-10.8)
[2025-02-19 21:46] LABS: Anion Gap 6.0 (3-11); Blood Urea Nitrogen 16.0 mg/dl (6-23); Calcium 9.9 mg/dl (8.6-10.3); Carbon Dioxide 31.0 mmol/L (21-32); Chloride 97.0 mmol/L (98-107); Creatinine Clr Calc Pharmacy 54.9 ml/min; Glucose 115.0 mg/dl (70-99(Fasting)); Magnesium 2.4 mg/dl (1.7-2.4); Potassium 4.2 mmol/L (3.5-5.1); Sodium 134.0 mmol/L (136-145)
[2025-02-19] MEDS ORDERED: AMIODARONE IV BOLUS & DRIP IV STA (21:59)
[2025-02-19] MEDS ORDERED: STAT IV Infusion **Titration per Protocol STA (21:59)
[2025-02-19] MEDS ORDERED: 0.2 MICRON FILTER SET 1 EACH IV STA (21:59)
[2025-02-19] MEDS: AMIODARONE / D5W 150 MG/100 ML BAG IV STA (22:31)
[2025-02-19] MEDS: AMIODARONE / D5W 360 MG/200 ML BAG IV ONE (22:44)
--- NOTE | 2025-02-20 00:21 | XRay Report ---
Exam(s): XR CXR 1 VIEW EXAM: XR Chest, 1 View CLINICAL HISTORY: Reason for exam: afib, hypoxemia. TECHNIQUE: Frontal view of the chest. COMPARISON: 02/10/2025 FINDINGS: Lungs: Left lower lobe atelectasis Pleural space: Unremarkable. No pneumothorax. Heart: Unremarkable. No cardiomegaly. Mediastinum: Unremarkable. Normal mediastinal contour. Bones/joints: Unremarkable. No acute fracture. Upper abdomen: Free air is noted within the abdomen. IMPRESSION: Left lower lobe atelectasis Free air noted within the abdomen. CT of the abdomen and pelvis recommended for further evaluation. Communications: Call Doctor Pneumoperitoneum, new or unexpected Electronically signed by: Isreal Alvarez MD 02/20/25 00:20 AM
[2025-02-20] MEDS: OPTIRAY 320 125ml IV ONE (01:12)
[2025-02-20] MEDS: DIGOXIN 250 MCG in SYRINGE 9 ML IV ONE (01:51)
--- NOTE | 2025-02-20 02:30 | XRay Report ---
EXAM: XR KUB/Abdomen 1 view CLINICAL HISTORY: abdominal pain TECHNIQUE: X-ray images of the abdomen were obtained in supine and upright positions. COMPARISON: No prior studies available for comparison. FINDINGS: Gas Pattern: Dilated gas filled small bowel loops seen. Gas filled large bowel loops also seen. Soft Tissues: Soft tissues of the abdomen appear normal without evidence of masses or calcifications. Liver, spleen, and kidneys are of normal size and position. IMPRESSION: Dilated gas filled small bowel loops seen. Gas filled large bowel loops also seen. Possibility of bowel obstruction (likely small bowel obstruction). Advised CT abdomen correlation. Electronically signed by Luis Mora 02-20-2025 02:28 AM
--- NOTE | 2025-02-20 03:26 | CT Scan Report ---
EXAM: CT abd pelvis wo con CLINICAL HISTORY: Pneumoperitoneum, abd pain TECHNIQUE: Contiguous axial images were obtained from the level of the diaphragm to the pubic symphysis without intravenous or oral contrast. Coronal and sagittal reconstructions were likewise performed and indicated to increase the sensitivity for detecting clinically relevant pathology. CT scan was performed according to ALARA (as low as reasonable achievable). COMPARISON: 12/16/2024 09:18:55 [employer]. FINDINGS: Mild bilateral pleural effusion is seen. The visualized lung bases are clear. Evaluation of the abdominal and pelvic visceral organs is limited without intravenous contrast. The unenhanced liver, spleen, pancreas, and adrenal glands are grossly unremarkable. The gallbladder is present. Hyperdense content seen in gall bladder lumen near neck- advised ultrasound correlation. The left kidney is not seen. An irregular small fluid collection with air foci, measuring 4x2cm is seen in the left renal fossa region. Right kidney shows a well defined cyst measuring 43mm in the upper polar region. Few other smaller cysts are seen in the right kidney. The right kidney is otherwise normal in size and attenuation without obvious calcification. There is no hydronephrosis or perinephric stranding. The urinary bladder is empty. Velasco's bulb is seen insitu. Prostate is enlarged measuring 5.4cm in maximum transverse dimension. Multiple colonic diverticuli are seen. Small bowel loops are dilated measuring 4.1cm in maximum diameter with air fluid levels, predominantly in left hemiabdomen. No evidence of focal or diffuse bowel wall thickening. No adenopathy or fluid collections are seen. The aorta is normal in caliber and shows atherosclerotic wall calcification. No aggressive appearing osseous lesions are identified. Subcutaneous emphysema is seen in the left anterior abdominal wall. IMPRESSION: 1. Dilated small bowel loops with air fluid levels - new - suggestive of acute bowel obstruction. Exact level of obstruction could not be ascertained. Possibility of ileus (post op). 2. Pneumoperitoneum - new. It may represent either post operative changes or bowel perforation. Advise clinical correlation. 3. Absent left kidney with a small irregular collection in left renal fossa. Previously seen left kidney is not seen. Likely post operative. 4. Right renal simple cortical cysts - stable. 5. Prostatomegaly - stable. 6. Colonic diverticulosis without any evidence of acute diverticulitis in this evaluation - stable. 7. Mild bilateral pleural effusion - new. 8. Subcutaneous emphysema in anterior abdominal wall - new. Electronically signed by Luis Mora 02-20-2025 03:25 AM
--- NOTE | 2025-02-20 03:52 | Communication Note ---
Date of Service: February 20, 2025 Patient evaluated overnight for atrial fibrillation with RVR (HR 160-190s) with complains of palpitations, abdominal pain and nausea. BP stable. Initial management with fluids, followed by IV Lopressor 5mg x2 without adequate rate control. Labs: Normal K and mag, Cr:1.67. Started on Amiodarone (bolus +drip) due to persistent elevated HR. Exam: Lungs CTA, Abdomen soft, tender to palpation, no guarding Chest xray and KUB obtained for pneumoperitoneum and SBO. CT abdomen: with suggestive of acute SBO. Pneumoperitoneum, suggestive of post operative changes. Patient subsequently passes flatus and converted to normal sinus rhythm. Placed on NPO. Nausea resolved after Zofran was given Patient re- started on Eliquis last night. Remained hemodynamically stable Will continue to monitor
[2025-02-20] MEDS: AMIODARONE / D5W 360 MG/200 ML BAG IV SCH (04:40)
[2025-02-20 06:21] LABS: Hematocrit (blood only) 36.7 % (42.0-52.0); Hemoglobin 12.2 g/dL (14.0-18.0); Immature Granulocytes # (auto) 0.07 K/uL (0.01-0.20); Immature Granulocytes % (auto) 0.6 %; Mean Corpuscular Hemoglobin 28.5 pg (25.0-34.0); Mean Corpuscular Volume 85.7 fL (80.0-100.0); Platelet Count 298 K/uL (130-400); RDW Standard Deviation 43.2 fL (36.4-46.3); Red Blood Count 4.28 M/uL (4.70-6.10); White Blood Count 11.39 K/ul (4.8-10.8)
[2025-02-20 07:09] LABS: Anion Gap 8.0 (3-11); Blood Urea Nitrogen 15.0 mg/dl (6-23); Calcium 9.5 mg/dl (8.6-10.3); Carbon Dioxide 29.0 mmol/L (21-32); Chloride 98.0 mmol/L (98-107); Creatinine Clr Calc Pharmacy 58.1 ml/min; Glucose 111.0 mg/dl (70-99(Fasting)); Potassium 4.4 mmol/L (3.5-5.1); Sodium 135.0 mmol/L (136-145)
[2025-02-20] MEDS: PANTOprazole 40 MG/10 ML SYR IV SCH (08:50)
--- NOTE | 2025-02-20 09:01 | Urology Progress Note ---
Date of Service February 20, 2025 Assessment & Plan (1) Renal mass: Plan Status post left radical nephrectomy Gradually progressing A multitude of chronic issues are also impacting his hospitalization. He resumed Eliquis yesterday appropriately and his hemoglobin is stable today His creatinine has not remained stable since surgery as well. He is maintaining good urine output with clear urine Essentially, at this stage we are waiting on his general medical issues to naga patiño and then ultimately placement. Urological standpoint, he is progressing appropriately. Admission and Anticipated Discharge Date Admission Date: February 11, 2025 Subjective Had a bit of a rough night Developed A-fib with the RVR required some additional care and had some increasing discomfort overnight. He reports that his shoulder today is considerably better, he is more aware of his abdomen but I do not think he is having severe pain. He has been passing flatus but has not yet moved his bowels. Did not feel that he was able to ambulate is much as he would have liked yesterday. Overall, feels that he is still uncomfortable enough that that he requires confinement. Physical Exam Physical Exam: Abdomen soft, incisions are all appropriate. Results & Data Vital Signs (Past 12 Hours) Vital Signs Temp Pulse Pulse Pulse Pulse Resp BP 02/20/25 07:49 36.4 C L 70 19 02/20/25 03:17 37.0 C 73 16 02/20/25 01:51 78 02/20/25 01:20 36.9 C 79 20 02/20/25 01:12 75 02/20/25 00:09 152 H 83 26 H 02/19/25 23:15 36.6 C 167 H 100 H 24 02/19/25 23:00 02/19/25 22:38 169 H 02/19/25 21:40 153 H 118/84 02/19/25 21:17 178 H 02/19/25 21:15 173 H 109/73 02/19/25 21:00 158 H 22 BP Pulse Ox O2 Del Method O2 Flow Rate 02/20/25 07:49 155/80 H 99 Nasal Cannula 2 02/20/25 03:17 134/81 95 Nasal Cannula 2.0 02/20/25 01:51 02/20/25 01:20 119/68 96 Nasal Cannula 2 02/20/25 01:12 02/20/25 00:09 98/65 L 96 Nasal Cannula 2 02/19/25 23:15 128/86 95 Nasal Cannula 2 02/19/25 23:00 Nasal Cannula 2 02/19/25 22:38 02/19/25 21:40 02/19/25 21:17 109/73 02/19/25 21:15 02/19/25 21:00 120/77 97 Nasal Cannula 2 PG Care Time/CCT Total # of Minutes Spent Total Time Spent with Patient: Total time spent is greater than 50% in coordination of care (as documented) at patient's floor/unit and/or counseling patient: Coding Level of Care Code 06826 SUB INP/OBS CARE 04/03MIN Diagnoses Renal mass N28.89
[2025-02-20] MEDS: SIMETHICONE 80 MG CHEW PO SCH (10:01)
[2025-02-20] MEDS: METOPROLOL SUCC 25MG EXT REL TAB PO SCH (10:01)
--- NOTE | 2025-02-20 17:00 | Hospitalist Progress Note ---
Date of Service February 20, 2025 Assessment & Plan (1) Syncope: (2) Urinary retention: (3) Paroxysmal atrial fibrillation: (4) UTI (urinary tract infection): (5) Left renal mass: (6) Ileus, postoperative: Plan This patient is a 64-year-old male with history of paroxysmal atrial fibrillation on Eliquis, right tibial chronic DVT, PE, remote history of seizure disorder, left renal mass, urinary retention with enlarged prostate with current Liz catheter in place, orthostatic hypotension, patulous esophagus/GERD, hypothyroidism, HTN, asthma, and recent admission at [facility] for Staphylococcus bacteremia/sepsis, acute kidney injury with creatinine of 10, severe hyponatremia, hyperkalemia, and rapid atrial fibrillation with myocardial demand ischemia. He went to rehab after that and was discharged to home on January 14 with a chronic Liz catheter. He was readmitted after having syncope in the medical transportation van on the way to his urology appointment for trial of void. Syncope was related to hypotension/medications and these were adjusted. He underwent planned robotic assisted L nephrectomy 02/17 # postop from robotic assisted L nephrectomy 02/17 for L renal mass, suspicious for neoplasm -Cr increased to 1.5 as expected post nephrectomy, stable - creatinine unchanged at 1.5 today - await pathology # Postoperative ileus - has not needed NG tube, passing a good amount of flatus, abdominal pain improved, advance to clear liquid diet. Ordered simethicone and Dulcolax suppository. Encouraged ambulation # rapid atrial fibrillation, history of PAF. he had an episode of rapid A-fib during the night 02/19-02/20 - he converted to sinus rhythm early this morning stop amiodarone drip - continue apixaban - increased metoprolol succinate to 25 mg p.o. twice daily # syncope - this was related to hypotension/orthostatic hypotension. Flomax had been recently started at the time of his syncope. Multiple blood pressure meds were intended to have been held after his last hospitalization but he had continued taking hydrochlorothiazide, lisinopril, metoprolol and atenolol. - brain MRI was normal, suspicion for seizure is low - Permanently discontinue HCTZ, lisinopril, amlodipine, and atenolol - doing well from the standpoint, no further testing indicated # paroxysmal atrial fibrillation - apixaban was held for surgery -resume tonight which is okay per today's urology note - continue metoprolol succinate 25 mg p.o. at bedtime # urinary tract infection - treated. continue ceftriaxone postoperatively until okay to stop her urology # Urinary retention - continue liz catheter, tamsulosin Recent LIZBETH related to sepsis HTN - cont metoprolol, meds decreased/adjusted this admission SANDRA - doesn't use CPAP Hypothyroidism on replacement DVT prophylaxis - apixaban Postoperative PT and OT reevaluations recommend SNF / rehab ready for discharge to SNF once ileus improved reviewed recommendations and urology note from today Admission and Anticipated Discharge Date Admission Date: February 11, 2025 Subjective 64-year-old male admitted with syncope, now post-radical nephrectomy for renal mass. Developed atrial fibrillation with RVR overnight, was experiencing palpitations, abdominal pain, and nausea. Treated with IV Lopressor 5 mg in two doses without adequate rate control, then started on amiodarone bolus and drip. EKG showed atrial fibrillation with rapid ventricular rates. No SOB or chest pain last night. Ambulated to chair, currently sitting in chair. also evaluated for increased abdominal pain and distention overnight. CT abdomen suggested small bowel obstruction Or ileus. Passed gas and converted to normal sinus rhythm. Reports feeling better today, still fatigued with mild abdominal pain. Abdomen distended, passing significant gas. Nausea managed with Zofran, felt slightly lightheaded afterward. Physical Exam Physical Exam: General Appearance: Normal. Vital signs: Reviewed past 24h vital signs in EMR, unremarkable. HEENT: Within normal limits. Respiratory: Clear to auscultation bilaterally. Cardiovascular: Regular heart rhythm, no murmurs, rubs, or gallops. Gastrointestinal: Moderately distended, nontender. Active bowel sounds. Tym panic. Extremities: Warm, well perfused, no edema. Skin: Warm, dry, well perfused. he has a lot of seborrheic dermatitis around his salazar and neck, refuses creams for that Neurological: AOx4, normal speech and mentation, bucio x 4. Psychiatric: Normal. Results & Data Results & Data Vital Signs (Past 12 Hours) Vital Signs Temp Pulse Pulse Resp BP Pulse Ox O2 Del Method 02/20/25 16:04 59 L 02/20/25 15:22 36.2 C L 63 19 129/79 95 Oxymask 02/20/25 11:30 36.3 C L 62 19 100/65 96 Oxymask 02/20/25 09:00 62 02/20/25 07:49 36.4 C L 70 19 155/80 H 99 Nasal Cannula 02/20/25 07:45 Nasal Cannula O2 Flow Rate 02/20/25 16:04 02/20/25 15:22 1 02/20/25 11:30 1 02/20/25 09:00 02/20/25 07:49 2 02/20/25 07:45 3 Laboratory Results - Labs: - WBC: 11 - Hgb: 12.2 - Platelets: 298 - Na: 135 - K: 4.4 - BUN: 15 - Cr: 1.53 (stable) - M.4 - Imaging: - CT abdomen (02/20/2025): - Dilated loops of small bowel with air-fluid levels suggestive of acute small bowel obstruction vs ileus - New pneumoperitoneum related to surgery - Absent left kidney - New mild bilateral pleural effusions - Subcutaneous emphysema of anterior abdominal wall - Otherwise unremarkable - Diagnostic Testing: - EKG (02/19/2025): Atrial fibrillation with rapid ventricular rates PG Care Time/CCT Total # of Minutes Spent Total Time Spent with Patient: Total time spent is greater than 50% in coordination of care (as documented) at patient's floor/unit and/or counseling patient: Coding Level of Care Code 03923 SUB INP/OBS CARE 3/50MIN Diagnoses Syncope R55 Urinary retention R33.9 Paroxysmal atrial fibrillation I48.0 UTI (urinary tract infection) N39.0 Left renal mass N28.89 Ileus, postoperative K91.89; K56.7
--- NOTE | 2025-02-21 10:35 | XRay Report ---
KUB CLINICAL HISTORY: Ileus versus obstruction. FINDINGS: 2 AP supine abdominal radiographs are compared to abdominal x-rays and CT dated 02/20/2025. Again seen is diffuse gaseous distention of the small bowel loops which measure up to 4.2 cm in diam eter. There is also gas seen throughout the colon. Intraperitoneal free air is noted. There are no ab normal abdominal calcifications. Phleboliths are seen in the pelvis. The skeletal structures are oste openic and appear intact. There is lumbosacral spondylosis and scoliosis. IMPRESSION: 1. There is persistent pneumoperitoneum. 2. Again seen is diffuse distention of the small bowel. There is also gas seen throughout the colon. This could be seen with ileus or obstruction, and clinical correlation will be essential. Electronically signed by: Zander Rivera M.D. 02/21/2025 10:32 AM
--- NOTE | 2025-02-21 13:20 | Urology Progress Note ---
Date of Service February 21, 2025 Assessment & Plan (1) Renal mass: Plan: Left renal mass concerning for malignancy, pathology is still pending. He is recovering appropriately from robotic radical nephrectomy. He has been making good urine output. He is gradually tolerating more of a diet and has been ambulating. No plan for additional procedural intervention at this time. (2) Urinary retention: Plan: Urinary retention managed with indwelling Velasco catheter. We will keep catheter for now and tentatively plan for voiding trial at follow-up in the office. Admission and Anticipated Discharge Date Admission Date: February 11, 2025 Subjective Feeling okay this morning Has been out of bed and ambulating Has slightly more diet, tolerating food without nausea or vomiting, still passing some flatus Catheter remains in place draining well Labs have been stable, no new labs as of this morning Physical Exam Physical Exam: Well-appearing, NAD Velasco catheter draining clear urine Sitting in chair and eating lunch Results & Data Vital Signs (Past 12 Hours) Vital Signs Temp Pulse Pulse Resp BP Pulse Ox O2 Del Method 02/21/25 11:20 36.8 C 75 18 106/62 97 Room Air 02/21/25 08:00 71 02/21/25 07:23 36.7 C 66 18 123/71 97 Room Air 02/21/25 07:20 Oxymask 02/21/25 02:33 36.6 C 59 L 18 99/64 L 98 Oxymask O2 Flow Rate 02/21/25 11:20 02/21/25 08:00 02/21/25 07:23 02/21/25 07:20 1 02/21/25 02:33 PG Care Time/CCT Total # of Minutes Spent Total Time Spent with Patient: Total time spent is greater than 50% in coordination of care (as documented) at patient's floor/unit and/or counseling patient: Coding Level of Care Code None Diagnoses Renal mass N28.89 Urinary retention R33.9
--- NOTE | 2025-02-21 17:16 | Hospitalist Progress Note ---
Date of Service February 21, 2025 Assessment & Plan (1) Syncope: (2) Urinary retention: (3) Paroxysmal atrial fibrillation: (4) UTI (urinary tract infection): (5) Left renal mass: (6) Ileus, postoperative: Plan This patient is a 64-year-old male with history of paroxysmal atrial fibrillation on Eliquis, right tibial chronic DVT, PE, remote history of seizure disorder, left renal mass, urinary retention with enlarged prostate with current Liz catheter in place, orthostatic hypotension, patulous esophagus/GERD, hypothyroidism, HTN, asthma, and recent admission at [facility] for Staphylococcus bacteremia/sepsis, acute kidney injury with creatinine of 10, severe hyponatremia, hyperkalemia, and rapid atrial fibrillation with myocardial demand ischemia. He went to rehab after that and was discharged to home on January 14 with a chronic Liz catheter. He was readmitted after having syncope in the medical transportation van on the way to his urology appointment for trial of void. Syncope was related to hypotension/medications and these were adjusted. He underwent planned robotic assisted L nephrectomy 02/17 # postop from robotic assisted L nephrectomy 02/17 for L renal mass, suspicious for neoplasm -Cr increased to 1.5 as expected post nephrectomy, stable Ordered a.m. BMP - await pathology # Postoperative ileus - has not needed NG tube, passing a good amount of flatus had a moderate stool yesterday after Dulcolax and 2 smaller 1 subsequently - KUB continues to have dilated loops of bowel but abdominal exam is improved, distention significantly improved and nontender with active bowel sounds - advance diet to full liquids, continue simethicone and bowel regimen # rapid atrial fibrillation, history of PAF. he had an episode of rapid A-fib during the night 02/19-02/20, was treated with amiodarone drip and converted to sinus later same a.m. - continue apixaban - increased metoprolol succinate to 25 mg p.o. twice daily - Heart rate in 40s while sleeping, asymptomatic # syncope - this was related to hypotension/orthostatic hypotension. Flomax had been recently started at the time of his syncope. Multiple blood pressure meds were intended to have been held after his last hospitalization but he had continued taking hydrochlorothiazide, lisinopril, metoprolol and atenolol. - brain MRI was normal, suspicion for seizure is low - Permanently discontinue HCTZ, lisinopril, amlodipine, and atenolol - doing well from the standpoint, no further testing indicated # urinary tract infection - treated. ceftriaxone extended during the perioperative period. Ceftriaxone # Urinary retention - continue liz catheter, tamsulosin. urology plans discharging with catheter and following up in the office for voiding trial Recent LIZBETH related to sepsis HTN - cont metoprolol, meds decreased/adjusted this admission SANDRA - doesn't use CPAP Hypothyroidism on replacement DVT prophylaxis - apixaban Postoperative PT and OT reevaluations recommend SNF / rehab ready for discharge to SNF once ileus improved reviewed recommendations and urology note 02/21 Admission and Anticipated Discharge Date Admission Date: February 11, 2025 Subjective 64-year-old male postoperative from radical nephrectomy, initially admitted with syncope. Three small bowel movements since yesterday. Vital signs: afebrile, HR 60s, BP 98-123/60s-70, 97% O2 sat. Experienced bradycardia (HR 46) while sleeping. Passing gas and bowel movements. Moderate stool yesterday, 2 small stools since. Continues with abdominal pain, especially in back and shoulder. Nausea this morning without emesis. Passing a lot of gas. Physical Exam Physical Exam: General Appearance: Normal. Vital signs: Reviewed past 24h vital signs in EMR, notable for: HR 60s, BP 98-123/60s-70, O2 sat 97%. HEENT: Within normal limits. Respiratory: Lungs clear bilaterally. Cardiovascular: Regular rate and rhythm, no murmur. Gastrointestinal: Abdomen less distended, soft, nontender. Active bowel sounds. Genitourinary: Lymphatic: Back, Musculoskeletal: Extremities: Lower extremities warm, well perfused, no edema. Skin: Skin warm, dry. Extensive seborrheic dermatitis on upper chest. Neurological: Awake, alert, oriented x4. Psychiatric: Normal. Other observations: Results & Data Results & Data Vital Signs (Past 12 Hours) Vital Signs Temp Pulse Pulse Resp BP Pulse Ox O2 Del Method 02/21/25 14:47 36.6 C 79 18 113/73 98 Room Air 02/21/25 14:19 91 H 02/21/25 11:20 36.8 C 75 18 106/62 97 Room Air 02/21/25 08:00 71 02/21/25 07:23 36.7 C 66 18 123/71 97 Room Air 02/21/25 07:20 Oxymask O2 Flow Rate 02/21/25 14:47 02/21/25 14:19 02/21/25 11:20 02/21/25 08:00 02/21/25 07:23 02/21/25 07:20 1 Diagnostic Findings I personally reviewed the KUB film which shows: - Imaging (KUB film): - Dilated loops of small bowel in left upper quadrant - No air fluid levels - Gas passing to rectum Consistent with ileus or SBO. PG Care Time/CCT Total # of Minutes Spent Total Time Spent with Patient: Total time spent is greater than 50% in coordination of care (as documented) at patient's floor/unit and/or counseling patient: Coding Level of Care Code 65094 SUB INP/OBS CARE 2/35MIN Diagnoses Syncope R55 Urinary retention R33.9 Paroxysmal atrial fibrillation I48.0 UTI (urinary tract infection) N39.0 Left renal mass N28.89 Ileus, postoperative K91.89; K56.7
[2025-02-22 06:11] LABS: Hematocrit (blood only) 32.6 % (42.0-52.0); Hemoglobin 10.9 g/dL (14.0-18.0); Mean Corpuscular Hemoglobin 28.9 pg (25.0-34.0); Mean Corpuscular Volume 86.5 fL (80.0-100.0); Platelet Count 305 K/uL (130-400); RDW Standard Deviation 42.5 fL (36.4-46.3); Red Blood Count 3.77 M/uL (4.70-6.10); White Blood Count 7.93 K/ul (4.8-10.8)
[2025-02-22 06:36] LABS: Alanine Aminotransferase 20.0 U/L (7-52); Albumin Globulin Ratio 1.0 (0.9-2); Albumin Level 3.2 gm/dl (3.4-5.0); Alkaline Phosphatase 56.0 U/L (34-104); Anion Gap 7.0 (3-11); Bilirubin,Total 0.5 mg/dl (0.2-1.0); Blood Urea Nitrogen 13.0 mg/dl (6-23); Calcium 9.2 mg/dl (8.6-10.3); Carbon Dioxide 30.0 mmol/L (21-32); Chloride 101.0 mmol/L (98-107); Creatinine Clr Calc Pharmacy 55.2 ml/min; Globulin 3.2 gm/dl (2.5-4.0); Glucose 94.0 mg/dl (70-99(Fasting)); Magnesium 2.2 mg/dl (1.7-2.4); Potassium 4.1 mmol/L (3.5-5.1); Sodium 138.0 mmol/L (136-145); Total Protein 6.4 gm/dl (6.0-8.3)
--- NOTE | 2025-02-22 07:43 | Urology Progress Note ---
Date of Service February 22, 2025 Assessment & Plan (1) Renal mass: Plan: Status post left radical nephrectomy Gradually progressing Afebrile with stable vitals Labs reviewedcreatinine 1.62, WBC 7.93, hemoglobin 10.9 Maintain Velasco catheter for management of urinary retention Will arrange outpatient follow-up for voiding trial Janellequanita has been restarted Continue ambulation, bowel regimen A multitude of chronic issues are also impacting his hospitalization From urological standpoint, he is progressing appropriately Continue medical management per hospital medicine Admission and Anticipated Discharge Date Admission Date: February 11, 2025 Subjective Patient seen and examined at bedside this morning. He is awake sitting up at the side of bed. No issues overnight. Has occasional discomfort near incisions. He has been ambulating. Velasco intact. Tolerating liquid diet. Passing flatus, no BM. No fever or chills. Review of Systems Constitutional: as per Subjective / HPI Genitourinary: + as per Subjective / HPI Physical Exam Constitutional: no acute distress Respiratory: normal respiratory effort; no respiratory distress and no labored breathing Gastrointestinal (Abdomen): Inspection/Auscultation: abdomen normal to inspection Musculoskeletal: Head/Neck/Chest: normocephalic Skin: Incisions C/D/I with dermabond Neurologic: moves all extremities and awake Psychiatric: Orientation: alert and oriented x 3 Genitourinary: Velasco intact Results & Data Vital Signs (Past 12 Hours) Vital Signs Temp Pulse Resp BP Pulse Ox O2 Del Method O2 Flow Rate 02/22/25 07:25 36.3 C L 66 18 131/63 96 Room Air 02/22/25 07:15 Room Air 02/22/25 03:00 36.7 C 67 18 128/73 97 Oxymask 2 02/21/25 23:00 37.1 C 64 19 103/64 96 Oxymask 2 02/21/25 20:00 Oxymask 1 PG Care Time/CCT Total # of Minutes Spent Total Time Spent with Patient: Total time spent is greater than 50% in coordination of care (as documented) at patient's floor/unit and/or counseling patient: Coding Level of Care Code 46447 SUB INP/OBS CARE 04/03MIN Diagnoses Renal mass N28.89
--- NOTE | 2025-02-22 19:14 | Hospitalist Progress Note ---
Date of Service February 22, 2025 Assessment & Plan (1) Syncope: (2) Urinary retention: (3) Paroxysmal atrial fibrillation: (4) UTI (urinary tract infection): (5) Left renal mass: (6) Ileus, postoperative: Plan This patient is a 64-year-old male with history of paroxysmal atrial fibrillation on Eliquis, right tibial chronic DVT, PE, remote history of seizure disorder, left renal mass, urinary retention with enlarged prostate with current Liz catheter in place, orthostatic hypotension, patulous esophagus/GERD, hypothyroidism, HTN, asthma, and recent admission at [facility] for Staphylococcus bacteremia/sepsis, acute kidney injury with creatinine of 10, severe hyponatremia, hyperkalemia, and rapid atrial fibrillation with myocardial demand ischemia. He went to rehab after that and was discharged to home on January 14 with a chronic Liz catheter. He was readmitted after having syncope in the medical transportation van on the way to his urology appointment for trial of void. Syncope was related to hypotension/medications and these were adjusted. He underwent planned robotic assisted L nephrectomy 02/17 # postop from robotic assisted L nephrectomy 02/17 for L renal mass, suspicious for neoplasm -Cr increased to 1.5 as expected post nephrectomy, stable Ordered a.m. BMP - Reviewed pathology tonight and that shows a renal cell carcinoma, I have not discussed this with the patient yet although he is expecting malignancy - follow-up with Dr. Marie, maintain Liz catheter until urology follow-up # Postoperative ileus - did not need NG tube, passing a good amount of flatus and has made stools - advance diet to low fiber today, continue bowel regimen and simethicone # rapid atrial fibrillation, history of PAF. he had an episode of rapid A-fib during the night 02/19-02/20, was treated with amiodarone drip and converted to sinus later same a.m. - continue apixaban - increased metoprolol succinate to 25 mg p.o. twice daily # syncope - this was related to hypotension/orthostatic hypotension. Flomax had been recently started at the time of his syncope. Multiple blood pressure meds were intended to have been held after his last hospitalization but he had continued taking hydrochlorothiazide, lisinopril, metoprolol and atenolol. - brain MRI was normal, suspicion for seizure is low - Permanently discontinue HCTZ, lisinopril, amlodipine, and atenolol - continue metoprolol for rate control as discussed above - doing well from the standpoint, no further testing indicated # urinary tract infection - treated. ceftriaxone extended during the perioperative period. completed treatment # Urinary retention - continue liz catheter, tamsulosin. urology plans discharging with catheter and following up in the office for voiding trial Recent LIZBETH related to sepsis HTN - cont metoprolol, meds decreased/adjusted this admission SANDRA - doesn't use CPAP Hypothyroidism on replacement DVT prophylaxis - apixaban Postoperative PT and OT reevaluations recommend SNF / rehab ileus resolving/resolved anticipate discharge to SNF 02/23 Admission and Anticipated Discharge Date Admission Date: February 11, 2025 Subjective Ileus has significantly improved. No nausea, vomiting, or stools in the past 24 hours. Passing gas, taking frequent walks, and burping. Tolerating full liquid diet well. Abdominal pain much improved, with some bilateral shoulder blade and incisional pain, well controlled with current medications. No shortness of breath or chest pain. Physical Exam Physical Exam: General Appearance: Normal. Vital signs: Reviewed past 24h vital signs in EMR, unremarkable. HEENT: Within normal limits. Respiratory: Lungs clear bilaterally. Cardiovascular: Heart regular, no murmurs, rubs, or gallop. Gastrointestinal: Abdomen mildly distended, not tympanic. Very active bowel sounds, normal in tone. Nontender to palpation. Genitourinary: Clear yellow urine in Liz catheter. Extremities: 1+ edema of feet and ankles. Skin: Warm and dry, no rash. Neurological: Awake, alert, oriented x4. Psychiatric: Normal. Results & Data Results & Data Vital Signs (Past 12 Hours) Vital Signs Temp Pulse Pulse Resp BP Pulse Ox O2 Del Method 02/22/25 15:17 36.3 C L 74 18 132/70 98 Room Air 02/22/25 15:00 80 02/22/25 11:41 36.4 C L 61 18 124/71 97 Room Air 02/22/25 07:25 36.3 C L 66 18 131/63 96 Room Air 02/22/25 07:15 Room Air PG Care Time/CCT Total # of Minutes Spent Total Time Spent with Patient: Total time spent is greater than 50% in coordination of care (as documented) at patient's floor/unit and/or counseling patient: Coding Level of Care Code 12967 SUB INP/OBS CARE MIN Diagnoses Syncope R55 Urinary retention R33.9 Paroxysmal atrial fibrillation I48.0 UTI (urinary tract infection) N39.0 Left renal mass N28.89 Ileus, postoperative K91.89; K56.7
--- NOTE | 2025-02-22 22:21 | Electrocardiogram Report ---
Test Reason : Blood Pressure : */* mmHG Vent. Rate : 138 BPM Atrial Rate : 104 BPM P-R Int : 158 ms QRS Dur : 104 ms QT Int : 324 ms P-R-T Axes : 33 -23 81 degrees QTcB Int : 490 ms Sinus tachycardia with Atrial fibrillation Left ventricular hypertrophy with repolarization abnormality ( R in aVL , [place] product ) Poor R wave progression, consider anterior SC vs. lead placement vs. LVH Abnormal ECG When compared with ECG of 10-Feb-2025 09:16, Run of atrial fibrillation is now Present Vent. rate has increased by 65 bpm Confirmed by Dayron Galindo ([id number]) on 02/22/2025 10:21:06 PM Referred By: REFERRED SELF Confirmed By: Dayron Galindo
--- NOTE | 2025-02-22 22:22 | Electrocardiogram Report ---
Test Reason : Blood Pressure : */* mmHG Vent. Rate : 171 BPM Atrial Rate : * BPM P-R Int : * ms QRS Dur : 92 ms QT Int : 282 ms P-R-T Axes : * -3 241 degrees QTcB Int : 475 ms Atrial fibrillation with rapid ventricular response Minimal voltage criteria for LVH, may be normal variant ( R in aVL ) Abnormal ECG When compared with ECG of 19-Feb-2025 19:32, Sinus rhythm is no longer Present Non-specific change in ST segment in Anterior leads T wave inversion now evident in Inferior leads Confirmed by Dayron Galindo ([id number]) on 02/22/2025 10:22:12 PM Referred By: REFERRED SELF Confirmed By: Dayron Galindo
[2025-02-23 07:11] VITALS: RESP 18; TEMP 97.7; O2SAT 97
--- NOTE | 2025-02-23 11:19 | Urology Progress Note ---
Date of Service February 23, 2025 Assessment & Plan (1) Renal mass: Plan: Status post left radical nephrectomy From urological standpoint, he is progressing appropriately Afebrile with stable vitals Maintain Velasco catheter for management of urinary retention Continue ambulation, bowel regimen Continue medical management per hospital medicine Patient likely getting discharged to rehab today Will arrange outpatient follow-up and voiding trial with our service Admission and Anticipated Discharge Date Admission Date: February 11, 2025 Subjective Patient seen and examined at bedside this morning. No acute issues overnight. Denies fever or chills. Passing flatus. Ambulating, tolerating diet. Mild incisional discomfort. Review of Systems Constitutional: as per Subjective / HPI Genitourinary: + as per Subjective / HPI Physical Exam Constitutional: no acute distress Respiratory: normal respiratory effort; no respiratory distress and no labored breathing Gastrointestinal (Abdomen): Inspection/Auscultation: abdomen normal to inspection Musculoskeletal: Head/Neck/Chest: normocephalic Skin: Incisions C/D/I with dermabond Neurologic: moves all extremities and awake Psychiatric: Orientation: alert and oriented x 3 Genitourinary: Velasco intact Results & Data Vital Signs (Past 12 Hours) Vital Signs Temp Pulse Resp BP Pulse Ox O2 Del Method 02/23/25 11:02 36.5 C 64 18 116/51 L 97 Room Air 02/23/25 07:10 36.5 C 64 18 137/74 97 Room Air 02/23/25 02:34 37.2 C 80 20 126/78 98 Nasal Cannula PG Care Time/CCT Total # of Minutes Spent Total Time Spent with Patient: Total time spent is greater than 50% in coordination of care (as documented) at patient's floor/unit and/or counseling patient: Coding Level of Care Code 37689 SUB INP/OBS CARE 04/03MIN Diagnoses Renal mass N28.89
[2025-02-23 12:41] VITALS: BP 126/84; PULSE 63
--- NOTE | 2025-02-23 18:17 | Discharge Summary ---
Discharge Summary Date of Service February 23, 2025 Principal Dx & Hospital Course #1 = Principal Diagnosis (1) Syncope: (2) Urinary retention: (3) Paroxysmal atrial fibrillation: (4) UTI (urinary tract infection): (5) Left renal mass: (6) Ileus, postoperative: Plan This patient is a 64-year-old male with history of paroxysmal atrial fibrillation on Eliquis, right tibial chronic DVT, PE, remote history of seizure disorder, left renal mass, urinary retention with enlarged prostate with current Liz catheter in place, orthostatic hypotension, patulous esophagus/GERD, hypothyroidism, HTN, asthma, and recent admission at [facility] for Staphylococcus bacteremia/sepsis, acute kidney injury with creatinine of 10, severe hyponatremia, hyperkalemia, and rapid atrial fibrillation with myocardial demand ischemia. He went to rehab after that and was discharged to home on January 14 with a chronic Liz catheter. He was readmitted after having syncope in the medical transportation van on the way to his urology appointment for trial of void. Syncope was related to hypotension/medications and these were adjusted. He underwent planned robotic assisted L nephrectomy 02/17 # postop from robotic assisted L nephrectomy 02/17 for L renal mass, suspicious for neoplasm - Cr increased to 1.6 as expected post nephrectomy, stable - Pathology reveals renal cell carcinoma, this was not discussed with the patient yet although he is expecting malignancy - follow-up with Dr. Marie, maintain Liz catheter until urology follow-up # Postoperative ileus - did not need NG tube, passing a good amount of flatus is now moving his bowels - advance diet to low fiber today, continue bowel regimen and simethicone # rapid atrial fibrillation, history of PAF. he had an episode of rapid A-fib during the night 02/19-02/20, was treated with amiodarone drip and converted to sinus later same a.m. - continue apixaban - increased metoprolol succinate to 25 mg p.o. twice daily # syncope - this was related to hypotension/orthostatic hypotension. Flomax had been recently started at the time of his syncope. Multiple blood pressure meds were intended to have been held after his last hospitalization but he had continued taking hydrochlorothiazide, lisinopril, metoprolol and atenolol. - brain MRI was normal, suspicion for seizure is low - Permanently discontinue HCTZ, lisinopril, amlodipine, and atenolol - continue metoprolol for rate control as discussed above - doing well from the standpoint, no further testing indicated # urinary tract infection - treated. ceftriaxone extended during the perioperative period. completed treatment # Urinary retention - continue liz catheter, tamsulosin. urology plans discharging with catheter and following up in the office for voiding trial Recent LIZBETH related to sepsis HTN - cont metoprolol, meds decreased/adjusted this admission SANDRA - doesn't use CPAP Hypothyroidism on replacement DVT prophylaxis - apixaban Dispo: Discharged to [facility] 02/23 Notes For Next Care Provider Medication Changes From Visit Multiple medication changes from this hospitalization. Please see list outlining these changes below. Admission HPI Per Admitting Provider This patient is a 64-year-old male with history of paroxysmal atrial fibrillation on Eliquis, right tibial chronic DVT, PE, remote history of seizure disorder, left renal mass, urinary retention with enlarged prostate with current Liz catheter in place, orthostatic hypotension, patulous esophagus/GERD, hypothyroidism, HTN, asthma, and recent admission at [facility] for Staphylococcus bacteremia and rapid atrial fibrillation with myocardial demand ischemia. He presents to the ED after the oil truck driver of his van was transporting him to a urology appointment for trial of void with Liz catheter removal and noticed seizure-like activity and the patient passed out. The patient reports he felt lightheaded before the event occurred. The li ghtheadedness went on for about 15 minutes and then he remembers being almost passed out but he could hear what was going on around him but could not respond. He was recently started on tamsulosin by urology about 3 weeks ago. He has an upcoming surgery scheduled for nephrectomy for large left renal mass. The episode was witnessed reportedly as shaking for several minutes. There is no evidence of tongue biting or urinary incontinence as he has a Liz catheter in place. His blood sugar was 149. His labs were found to have a mild leukocytosis of 13, CT head negative, CXR negative, magnesium mildly low 1.6, creatinine mildly elevated 1.4. He had 2 episodes of nausea and vomiting afterwards. In the ED, he was given IV fluids and IV Zofran, as well as IV magnesium. The ED physician contacted neurology due to suspicion for seizure and they recommended MRI brain. After I saw the patient, orthostatic vital signs were obtained and were positive. No further workup for seizure needed. He will be admitted for syncopal episode. Discharge Exam General: No acute distress, nondiaphoretic, well-developed, well-nourished. Skin: Warm, dry. No rash or peripheral edema noted. Cardiac: Regular rate and rhythm without murmurs gallops or rubs. Pulm: Clear to auscultation bilaterally without wheezes, rales or rhonchi. Normal respiratory effort. 97% on room air. Abdominal: Soft, nontender, mildly distended. Bowel sounds present. : Liz catheter draining clear yellow urine. Neuro: A&O x3. No focal neurological deficits. Discharge Plan Discharge Items Patient Disposition: Transfer Alf Fac Reason For Visit: SYNCOPE Discharge Diagnosis: Hypotensive syncope, Left radical nephrectomy Condition on Discharge: Good Activity: Per Instructions section Non-emergency contact: Primary Care Provider and Urologist Call non-emergency contact if: you have any medication questions, your symptoms worsen and you have a fever Follow-up/Referrals: Zander Fontaine MD [Primary Care Provider] - Patricio Marie MD [Physician] - Diet: Regular Addtl Attending Provider Instructions: Admitted for hypotensive/orthostatic syncope and multiple BP meds were stopped, which solved the problem. Please review your medication list for changes from this hospitalization listed below Had already been scheduled for L nephrectomy for renal mass 02/17 which was completed this admission by Dr. Marie Complicated by postop ileus which has resolved PT and OT evaluate and treat Call to schedule follow up with Urology Dr. Marie Leave Liz catheter in place until urology follow up Pending Studies at Discharge: No Stand-Alone Forms: My [facility] Skilled Items Patient informed of condition?: Yes DNR: No Discharge Level of Care: Skilled Communicable Disease: No Discharge Prognosis: Improving Lines: None Urinary Catheter: Yes Medications and DC Order Prescriptions: New sennosides [Senna Lax] 8.6 mg Tablet 17.2 mg PO BID Qty: 0 0RF acetaminophen 325 mg Tablet 650 mg PO Q6H Qty: 0 0RF polyethylene glycol 3350 [Miralax] 17 gram Powder In Packet 17 g PO BID Qty: 0 0RF metoprolol succinate 25 mg Tablet Extended Release 24 Hr 25 mg PO BID Qty: 0 0RF oxycodone 5 mg Tablet 5 mg PO Q6H PRN (Reason: pain) Qty: 15 0RF ketoconazole 2 % Cream 1 applic EXT BID Qty: 0 0RF Rx Instructions: groin candidiasis simethicone [Gas Relief (simethicone)] 80 mg Tablet,Chewable 80 mg PO Q6H PRN (Reason: gas) Qty: 0 0RF Continued nitroglycerin 0.4 mg tablet, sublingual 0.4 mg sublingual Q5M PRN (Reason: chest pain) Qty: 25 1RF Rx Instructions: do not exceed 3 doses per episode ketoconazole 2 % cream 1 applic topical BID Qty: 30 11RF Patient Comments: last filled 12/19 15 day supply epinephrine 0.3 mg/0.3 mL auto-injector 0.3 mg IM PRN PRN (Reason: Anaphylaxis) Rx Instructions: for 2 doses Eliquis 5 mg tablet 5 mg PO BID Qty: 60 0RF albuterol sulfate 90 mcg/actuation HFA aerosol inhaler 2 puff inhalation Q4H PRN (Reason: shortness of breath or wheezing) Patient Comments: 02/10- no fill history unable to verify Rx Instructions: 2 inhalations inhalation q4h PRN; fluticasone propionate 50 mcg/actuation spray,suspension 2 spray intranasal HS Patient Comments: 02/10- otc unable to verify Rx Instructions: USE TWO SPRAYS IN EACH NOSTRIL DAILY AT BEDTIME fluticasone furoate [Arnuity Ellipta] 100 mcg/actuation blister with device 0 inh inhalation DAILY Patient Comments: 02/10-last filled 11/29 30 day supply Rx Instructions: INHALE ONE PUFF BY MOUTH ONCE DAILY ketoconazole 2 % shampoo 0 applic topical DAILY Patient Comments: last filled 04/04 90 day supply famotidine 40 mg tablet 0 mg PO HS Patient Comments: 02/10- last filled 10/01 90 day supply cetirizine 10 mg tablet 10 mg PO QAM Patient Comments: 02/10- otc unable to verify tamsulosin 0.4 mg capsule 0.4 mg PO HS Tudca 1 tab PO QAM Patient Comments: 02/10-otc/no fill history unable to verify Changed levothyroxine 125 mcg tablet 250 mcg PO QAM Qty: 0 0RF Patient Comments: 02/10-Last filled 11/27 30 day supply pt states that he is taking 2 pills of levothyroxine 125mcg daily and that he was instructed during TCM phone call to do so Held acetaminophen [Arthritis Pain Relief (acetam)] 650 mg tablet extended release 650 mg PO .COMPLEX Hold Instructions: after no longer on scheduled acetaminophen Patient Comments: 02/10- otc unable to verify Rx Instructions: 650 mg PO 2 tabs in the AM and 2 tabs in the PM; Discontinued metoprolol succinate 50 mg tablet extended release 24 hr 50 mg PO HS Qty: 90 3RF hydrochlorothiazide 25 mg tablet 25 mg PO QAM Qty: 90 3RF amlodipine 10 mg tablet 0 mg PO DAILY Hold Instructions: Home Medication placed on hold at Doctor's office Patient Comments: 02/10- no fill history unable to verify pt states not taking; on Hold by PCP clotrimazole 1 % cream 0 applic topical BID Patient Comments: Last filled 08/11 28 day supply Rx Instructions: apply to glans 2 times a day with the ketoconazole lisinopril 20 mg tablet 20 mg PO QPM atenolol 25 mg tablet 25 mg PO HS levothyroxine 125 mcg tablet 0 mcg PO QAM Patient Comments: 02/10-Last filled 11/27 30 day supply pt states that he is taking 2 pills of levothyroxine 125mcg daily and that he was instructed during TCM phone call to do so. No Action atorvastatin 20 mg tablet See Rx Instructions .ROUTE .COMPLEX Qty: 90 0RF Dose Instruction: TAKE ONE TABLET BY MOUTH ONCE DAILY Rx Instructions: TAKE ONE TABLET BY MOUTH ONCE DAILY Discharge Orders: Discharge Order (Routine); Ordered 02/23/25 Ordered By: Destinee Sanchez Admission Data Admit Date/Time: 02/11/25 10:45 Attending Provider: Jake Gonzalez Admit Provider: Ale Bradshaw Primary Care Provider: Zander Fontaine Other Providers: Patricio Marie Other Interventions: Discharge Summary Assessment (RN) Last Done: 02/23/25 12:40 Hospital Stay Data Consultations 02/10/25 10:46 ED Decision to Admit Stat Procedures Performed Operation Date: 02/17/25 07:30 Actual Procedures p Robotic assisted Laparoscopic Nephrectomy Radical Left(Left) - Patricio Marie MD Diagnostic Imagining Performed Head CT 02/10/25 09:22 CT SCAN OF THE BRAIN WITHOUT IV CONTRAST CLINICAL HISTORY: Seizure. COMPARISON STUDY: None TECHNIQUE: Unenhanced axial CT scan of the brain was performed from the vertex to the skull base. A dose lowering technique was utilized adhering to the principles of ALARA. CT DOSE: 547.75 mGy.cm FINDINGS: No intra or extra-axial mass lesions are visualized. There is no CT evidence of acute cortical infarction. There is no evidence of midline shift. There is no evidence of acute hemorrhage. There is no evidence of hydrocephalus. There is no evidence of acute sinusitis. No calvarial lesions are visualized. IMPRESSION: No acute intracranial findings. ACT 112: Negative or not required by law. Electronically signed by: Levi Soliman M.D. 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 There is borderline elevation right hemidiaphragm. There is no failure. There is no focal pulmonary consolidation. There are no pleural effusions. There is no pneumothorax. Degenerative changes are present within the dorsal spine. IMPRESSION: No acute cardiopulmonary findings. ACT 112: Negative or not required by law. Electronically signed by: Levi Soliman M.D. 02/10/2025 10:16 AM Brain MRI 02/10/25 10:52 MRI OF THE BRAIN WITHOUT AND WITH IV CONTRAST SEIZURE PROTOCOL CLINICAL HISTORY: seizure COMPARISON STUDY: Noncontrast head CT dated 02/10/2025 TECHNIQUE: Utilizing a 1.5 Eneida magnet and dedicated coil, multiplanar, multiecho imaging of the brain was performed pre and postcontrast administration. IV administration of [address] contra[address] was uneventful. Thin cut coronal T2 imaging was performed according to seizure protocol. FINDINGS: There are anterior or extra-axial mass lesions are visualized. No orbital lesions are visualized. Ventricular system is normal size and configuration for age. Gradient echo images reveal no hemorrhagic foci. Axial diffusion-weighted images reveal no evidence of acute or subacute infarction. FLAIR images reveal no significant intracranial signal abnormalities. Thin section T2-weighted images to the temporal lobes reveal symmetric hippocampal formations. Postcontrast images reveal no pathologically enhancing lesions. IMPRESSION: 1. No acute intracranial findings 2. No evidence of intracranial mass 3. No evidence of acute or subacute infarction ACT 112: Negative or not required by law. Electronically signed by: Levi Soliman M.D. 02/10/2025 1:05 PM Chest X-Ray 02/19/25 22:48 CR Exam(s): XR CXR 1 VIEW EXAM: XR Chest, 1 View CLINICAL HISTORY: Reason for exam: afib, hypoxemia. TECHNIQUE: Frontal view of the chest. COMPARISON: 02/10/2025 FINDINGS: Lungs: Left lower lobe atelectasis Pleural space: Unremarkable. No pneumothorax. Heart: Unremarkable. No cardiomegaly. Mediastinum: Unremarkable. Normal mediastinal contour. Bones/joints: Unremarkable. No acute fracture. Upper abdomen: Free air is noted within the abdomen. IMPRESSION: Left lower lobe atelectasis Free air noted within the abdomen. CT of the abdomen and pelvis recommended for further evaluation. Communications: Call Doctor Pneumoperitoneum, new or unexpected Electronically signed by: Isreal Alvarez MD 02/20/25 00:20 AM KUB X-Ray 02/20/25 00:15 EXAM: XR KUB/Abdomen 1 view CLINICAL HISTORY: abdominal pain TECHNIQUE: X-ray images of the abdomen were obtained in supine and upright positions. COMPARISON: No prior studies available for comparison. FINDINGS: Gas Pattern: Dilated gas filled small bowel loops seen. Gas filled large bowel loops also seen. Soft Tissues: Soft tissues of the abdomen appear normal without evidence of masses or calcifications. Liver, spleen, and kidneys are of normal size and position. IMPRESSION: Dilated gas filled small bowel loops seen. Gas filled large bowel loops also seen. Possibility of bowel obstruction (likely small bowel obstruction). Advised CT abdomen correlation. Electronically signed by Luis Mora 02-20-2025 02:28 AM Abdomen/Pelvis CT 02/20/25 01:22 EXAM: CT abd pelvis wo con CLINICAL HISTORY: Pneumoperitoneum, abd pain TECHNIQUE: Contiguous axial images were obtained from the level of the diaphragm to the pubic symphysis without intravenous or oral contrast. Coronal and sagittal reconstructions were likewise performed and indicated to increase the sensitivity for detecting clinically relevant pathology. CT scan was performed according to ALARA (as low as reasonable achievable). COMPARISON: 12/16/2024 09:18:55 PRECISE WINDER. FINDINGS: Mild bilateral pleural effusion is seen. The visualized lung bases are clear. Evaluation of the abdominal and pelvic visceral organs is limited without intravenous contrast. The unenhanced liver, spleen, pancreas, and adrenal glands are grossly unremarkable. The gallbladder is present. Hyperdense content seen in gall bladder lumen near neck- advised ultrasound correlation. The left kidney is not seen. An irregular small fluid collection with air foci, measuring 4x2cm is seen in the left renal fossa region. Right kidney shows a well defined cyst measuring 43mm in the upper polar region. Few other smaller cysts are seen in the right kidney. The right kidney is otherwise normal in size and attenuation without obvious calcification. There is no hydronephrosis or perinephric stranding. The urinary bladder is empty. Liz's bulb is seen insitu. Prostate is enlarged measuring 5.4cm in maximum transverse dimension. Multiple colonic diverticuli are seen. Small bowel loops are dilated measuring 4.1cm in maximum diameter with air fluid levels, predominantly in left hemiabdomen. No evidence of focal or diffuse bowel wall thickening. No adenopathy or fluid collections are seen. The aorta is normal in caliber and shows atherosclerotic wall calcification. No aggressive appearing osseous lesions are identified. Subcutaneous emphysema is seen in the left anterior abdominal wall. IMPRESSION: 1. Dilated small bowel loops with air fluid levels - new - suggestive of acute bowel obstruction. Exact level of obstruction could not be ascertained. Possibility of ileus (post op). 2. Pneumoperitoneum - new. It may represent either post operative changes or bowel perforation. Advise clinical correlation. 3. Absent left kidney with a small irregular collection in left renal fossa. Previously seen left kidney is not seen. Likely post operative. 4. Right renal simple cortical cysts - stable. 5. Prostatomegaly - stable. 6. Colonic diverticulosis without any evidence of acute diverticulitis in this evaluation - stable. 7. Mild bilateral pleural effusion - new. 8. Subcutaneous emphysema in anterior abdominal wall - new. Electronically signed by Luis Mora 02-20-2025 03:25 AM KUB X-Ray 02/21/25 08:50 KUB CLINICAL HISTORY: Ileus versus obstruction. FINDINGS: 2 AP supine abdominal radiographs are compared to abdominal x-rays and CT dated 02/20/2025. Again seen is diffuse gaseous distention of the small bowel loops which measure up to 4.2 cm in diameter. There is also gas seen throughout the colon. Intraperitoneal free air is noted. There are no abnormal abdominal calcifications. Phleboliths are seen in the pelvis. The skeletal structures are osteopenic and appear intact. There is lumbosacral spondylosis and scoliosis. IMPRESSION: 1. There is persistent pneumoperitoneum. 2. Again seen is diffuse distention of the small bowel. There is also gas seen throughout the colon. This could be seen with ileus or obstruction, and clinical correlation will be essential. Electronically signed by: Zander Rivera M.D. 02/21/2025 10:32 AM Pending Results Patient Have Any Pending Studies at Discharge: No Discharge Instructions Given to Patient (Per Discharging Provider) Admitted for hypotensive/orthostatic syncope and multiple BP meds were stopped, which solved the problem. Please review your medication list for changes from this hospitalization listed below Had already been scheduled for L nephrectomy for renal mass 02/17 which was completed this admission by Dr. Marie Complicated by postop ileus which has resolved PT and OT evaluate and treat Call to schedule follow up with Urology Dr. Marie Leave Liz catheter in place until urology follow up Supervising Physician Co-Signing Physician Notes Attending Attestation & Discharge Note: Chart reviewed, discharge care plan d/w LYSSA Sanchez. I agree w/ the hatch components of her discharge documentation. Of note - I did not perform a bedside visit or exam on day of discharge. 64yo male with history of paroxysmal atrial fibrillation on Eliquis, right tibial chronic DVT, PE, remote history of seizure disorder, left renal mass, urinary retention 2nd BPH with Liz catheter in place, orthostatic hypotension, patulous esophagus/GERD, hypothyroidism, HTN, asthma, and recent admission at [facility] for Staphylococcus bacteremia/sepsis, acute kidney injury with creatinine of 10, severe hyponatremia, hyperkalemia, and rapid atrial fibrillation. He went to rehab after the [facility] Hospitalization and was discharged to home on January 14 with a chronic Liz catheter. 02/10 - was in a medical transportation van on the way to his [facility] urology appointment for trial of void/liz removal when he had episode of syncope. Orthostatic BPs were+ upon ER arrival to [facility] [address]. Following admission the following medicines were stopped in the setting of his syncope/orthostasis --> HCTZ, lisinopril, amlodipine, and atenolol. Meto succ twice daily will be continued. Echo was done at [facility] in 12/2024 showing normal EF and normal valves thus it was deferred during this hospitalization. The patient was originally scheduled for a left-sided nephrectomy on 02/17 and since patient was already admitted he underwent such surgery by Dr Patricio Marie. Nephrectomy was robotically-assisted and pathology returned with renal cell ca. Post-op patient's creatinine increased to 1.6. He also had an expected post-operative ileus but was moving his bowels prior to discharge. Post-op course further complicated by rapid a.fib requiring the use of amiodarone infusion on 02/19 to 02/20. Patient will continue on flomax and will d/c with liz in place. He will need to f/u with [facility] Urology post-discharge for catheter removal/voiding trial. Jake Gonzalez MD Total Time Total Time Spent Total Time Spent (In Minutes): Greater than 30 minutes spent completing this discharge process including direct patient care, medication reconciliation, documentation, review of labs and images, and coordination of care. Coding Level of Care Code 77625 INP/OBS DISCH >30 MIN Diagnoses Syncope R55 Urinary retention R33.9 Paroxysmal atrial fibrillation I48.0 UTI (urinary tract infection) N39.0 Left renal mass N28.89 Ileus, postoperative K91.89; K56.7
--- NOTE | 2025-02-24 09:53 | Coding Query ---
Your help is needed for correct coding of this account; please clarify if the patients Post-operative Ileus was: (x ) expected out of the surgery ( ) unexpected complication from the surgery ( )other please specify Thank you LEODAN Roth CCS
== END 2025-02-23 13:17 | DRG 982 ==
LOC: 2S 09:11 → ED 09:11 → 2S 14:00 → SUATTDRO 02-11 10:45 → 3W 02-14 17:01 → 4W 02-17 16:44
DX: R33.9 Retention of urine, unspecified; G40.909 Epilepsy, unspecified, not intractable, without status epilepticus; C64.2 Malignant neoplasm of left kidney, except renal pelvis; G47.33 Obstructive sleep apnea (adult) (pediatric); I10 Essential (primary) hypertension; I95.2 Hypotension due to drugs; E03.9 Hypothyroidism, unspecified; N40.1 Benign prostatic hyperplasia with lower urinary tract symptoms; J45.909 Unspecified asthma, uncomplicated; T50.2X5A Adverse effect of carbonic-anhydrase inhibitors, benzothiadiazides and other diuretics, initial encounter; E86.0 Dehydration; K21.9 Gastro-esophageal reflux disease without esophagitis; Z79.890 Hormone replacement therapy; T46.4X5A Adverse effect of angiotensin-converting-enzyme inhibitors, initial encounter; Z79.01 Long term (current) use of anticoagulants; Z87.891 Personal history of nicotine dependence; E83.42 Hypomagnesemia; N39.0 Urinary tract infection, site not specified; I25.2 Old myocardial infarction; E87.1 Hypo-osmolality and hyponatremia; I95.1 Orthostatic hypotension; I82.541 Chronic embolism and thrombosis of right tibial vein; Z88.0 Allergy status to penicillin; T46.2X5A Adverse effect of other antidysrhythmic drugs, initial encounter; Z87.74 Personal history of (corrected) congenital malformations of heart and circulatory system; I48.0 Paroxysmal atrial fibrillation; K56.7 Ileus, unspecified